=== PATIENT | male | born 1935 | race Caucasian/White ===

== ENCOUNTER → 2017-01-02 | Outpatient (CLI) | payer OTHER | LOC: FIMAGING 10:31 | PROVIDERS: ATTEND Internal Medicine Critical Care Medicine | DX: J44.9 Chronic obstructive pulmonary disease, unspecified (principal); J84.10 Pulmonary fibrosis, unspecified ==

== ENCOUNTER 2017-10-08 12:28 | Inpatient (IN) | payer OTHER, MEDICARE ==
[2017-10-08] MEDS ORDERED: IPRATROPIUM/ALBUTEROL 3 ML DEYVIAL ONE (12:33)
[2017-10-08 12:57] LABS: PLATELET COUNT 337 10^3/uL (150-400)
--- NOTE | 2017-10-08 13:33 | EDPHY ---
H & P Stated Complaint: abdominal pain, SOB Time Seen by Provider: 10/08/17 12:38 HPI/ROS: CHIEF COMPLAINT: Abdominal pain HISTORY OF PRESENT ILLNESS: Patient is an 81-year-old male with steroid and oxygen-dependent COPD who called EMS today because of abdominal pain. When the paramedics arrived they noted that his oxygen saturation was in the 70s with increased work of breathing. He was given a DuoNeb and nebulized albuterol and route to the hospital. He he was placed on CPAP with subsequent oxygen saturations in the low 90s. He continued to be tachypneic en route. He has not had recent fever or cough. He complains of abdominal pain which she states is generalized. It began earlier today. He has not had vomiting or diarrhea. His notes that he had a black loose stool earlier in the day. He received IV morphine en route. REVIEW OF SYSTEMS: A 10 point review of systems was performed and is negative with the exception of the elements mentioned in the history of present illness. Past medical history: 1. Prostate cancer 2. Hypertension 3. Dyslipidemia 4. CVA 5. COPD Past surgical history: Prostatectomy Social history: He lives with his . 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 He has a 50 pack-year history of smoking and stopped a few years back. His tells me that he drinks alcohol on occasion. General Appearance: Alert, moderate respiratory distress. Respiratory rate 22, blood pressure 134/93. oxygen saturation 90% on CPAP. Eyes: Matting and discharge from the right eye. FRANK. ENT, Mouth: Mucous membranes are dry. Neck: Trachea midline. Respiratory: Lungs with diffuse wheezing and poor air exchange. Cardiovascular: Slightly tachycardic. Gastrointestinal: Abdomen is diffusely tender without guarding. No masses appreciated. Rectal: No stool on the examining glove. Nontender. Skin: Warm and dry, no rashes, normal color. Back: Nontender to palpation over the thoracolumbar spine. Extremities: No lower extremity edema, no calf tenderness or swelling. Neurological: Alert and oriented. Moving all four extremities easily and equally. Psychiatric: Normal affect. No agitation. - Personal History Current Tetanus/Diphtheria Vaccine: No Current Tetanus Diphtheria and Acellular Pertussis (TDAP): No - Medical/Surgical History Hx Asthma: No Hx Chronic Respiratory Disease: Yes Hx Diabetes: No Hx Cardiac Disease: No Hx Renal Disease: No Hx Cirrhosis: No Hx Alcoholism: No Hx HIV/AIDS: No Hx Splenectomy or Spleen Trauma: No Other PMH: COPD - Social History Smoking Status: Former smoker Constitutional: Initial Vital Signs Temperature (C) 36.5 C 10/08/17 12:37 Heart Rate 91 10/08/17 12:37 Respiratory Rate 22 H 10/08/17 12:37 Blood Pressure 134/93 H 10/08/17 12:37 O2 Sat (%) 90 L 10/08/17 12:37 O2 Delivery Mode Bi-Pap O2 (L/minute) 15 Allergies/Adverse Reactions: No Known Allergies Allergy (Verified 10/08/17 12:37) Home Medications: Medication Instructions Recorded Fluticasone Nasal [Flonase Nasal 1 sprays NASAL HS 10/08/17 [place] (RX)] Fluticasone/Salmeter 250/50Mcg 1 puffs IH HS 10/08/17 [Advair 250/50 (*)] Lisinopril [Zestril 10 mg (*)] 10 mg PO DAILY 10/08/17 Simvastatin [Zocor] 40 mg PO HS 10/08/17 predniSONE 20 mg PO DAILY 10/08/17 Medical Decision Making - Diagnostics Imaging Results: Imaging Impressions Chest X-Ray 10/08/17 12:36 Impression: Poor inspiration. ED Course/Re-evaluation: Patient will not tolerate CT abdomen as he is unable to lie flat. 13:31 Reassessed patient. He continues to feel unwell, and complains of abdominal pain. On my reexamination, he continues to have abdominal tenderness. He denies vomiting but endorses black diarrhea earlier in the day. Occasional alcohol use. Plan for rectal exam. Plan for x-ray abdomen--given his respiratory distress he is not able to lie flat for CT scan the abdomen. at bedside states he has not been taking his Advair as prescribed. Hemoccult negative. Chest x-ray reveals poor inspiration. There is no free air noted. While in the emergency department he remained on BiPAP for most of his stay. He received 4 albuterol nebulizer treatments. He continued to be tachypneic with increased work of breathing. I think that some of this is due to his abdominal discomfort. He underwent serial examinations. His respiratory status improved and was ultimately able to be transitioned from BiPAP to face mask oxygen. I asked patient and his that discussed the treatments that he would like should he stop breathing, specifically whether he would want to be placed on a ventilator. Apparently they have not talked about this. He is a poor candidate for mechanical ventilation. He received IV Dilaudid for pain control with good results. However, he continued with abdominal pain. High blood cell count is 12.6. I consulted Dr. Reina Mao who examined him in the department. At the time of her examination she noted that he had peritoneal signs. At that time I re- examined him and found him to be markedly worse with significant abdominal tenderness and guarding. Dr. Mao and plans to take him to the operating room. He has been NPO. Differential Diagnosis: Shortness of breath including but not limited to pulmonary infectious process, COPD, asthma, pulmonary embolus and congestive heart failure. I considered a differential diagnosis of his abdominal pain that includes but is not limited to appendicitis, perforated viscus, cholecystitis, ascending cholangitis, bowel obstruction, urinary retention. Critical Care Time: I spent a total of [50] minutes of critical care time in obtaining history, performing a physical exam, bedside monitoring of interventions, collecting and interpreting tests and discussion with consultants but not including time spent performing procedures. Patient was a risk of both respiratory deterioration and deterioration secondary to an intra-abdominal infection/catastrophe. - Data Points Laboratory Results: Laboratory Results 10/08/17 12:38 10/08/17 12:38 10/08/17 10/08/17 10/08/17 14:20 13:30 12:38 WBC RBC Hgb Hct MCV MCH MCHC RDW Plt Count MPV Neut % (Auto) Lymph % (Auto) Mchenry % (Auto) Eos % (Auto) Baso % (Auto) Nucleat RBC Rel Count Absolute Neuts (auto) Absolute Lymphs (auto) Absolute Monos (auto) Absolute Eos (auto) Absolute Basos (auto) Absolute Nucleated RBC Immature Gran % Immature Gran # VBG Lactic Acid 2.7 mmol/L H mmol/L (0.7-2.1) Sodium 144 mEq/L mEq/L (135-145) Potassium 4.5 mEq/L mEq/L (3.5-5.2) Chloride 105 mEq/L mEq/L (97-110) Carbon Dioxide 25 mEq/l mEq/l (22-31) Anion Gap 14 mEq/L mEq/L (8-16) BUN 35 mg/dL H mg/dL (7-23) Creatinine 1.0 mg/dL mg/dL (0.7-1.3) Estimated GFR > 60 Glucose 147 mg/dL H mg/dL (70-100) Calcium 8.5 mg/dL mg/dL (8.5-10.4) Troponin I < 0.012 ng/mL ng/mL (0.000-0.034) Stool Occult Bld Scrn NEGATIVE (NEGATIVE) 10/08/17 12:38 WBC 12.65 10^3/uL H 10^3/uL (3.80-9.50) RBC 3.69 10^6/uL L 10^6/uL (4.40-6.38) Hgb 12.3 g/dL L g/dL (13.7-17.5) Hct 37.8 % L % (40.0-51.0) MCV 102.4 fL H fL (81.5-99.8) MCH 33.3 pg pg (27.9-34.1) MCHC 32.5 g/dL g/dL (32.4-36.7) RDW 13.6 % % (11.5-15.2) Plt Count 337 10^3/uL 10^3/uL (150-400) MPV 9.0 fL fL (8.7-11.7) Neut % (Auto) 76.4 % H % (39.3-74.2) Lymph % (Auto) 14.2 % L % (15.0-45.0) Mchenry % (Auto) 6.4 % % (4.5-13.0) Eos % (Auto) 0.2 % L % (0.6-7.6) Baso % (Auto) 0.4 % % (0.3-1.7) Nucleat RBC Rel Count 0.2 % % (0.0-0.2) Absolute Neuts (auto) 9.67 10^3/uL H 10^3/uL (1.70-6.50) Absolute Lymphs (auto) 1.79 10^3/uL 10^3/uL (1.00-3.00) Absolute Monos (auto) 0.81 10^3/uL H 10^3/uL (0.30-0.80) Absolute Eos (auto) 0.03 10^3/uL 10^3/uL (0.03-0.40) Absolute Basos (auto) 0.05 10^3/uL 10^3/uL (0.02-0.10) Absolute Nucleated RBC 0.02 10^3/uL H 10^3/uL (0-0.01) Immature Gran % 2.4 % H % (0.0-1.1) Immature Gran # 0.30 10^3/uL H 10^3/uL (0.00-0.10) VBG Lactic Acid Sodium Potassium Chloride Carbon Dioxide Anion Gap BUN Creatinine Estimated GFR Glucose Calcium Troponin I Stool Occult Bld Scrn Microbiology Results: MICROBIOLOGY 10/08/17 12:50 Nasal, Sinus - [facility] Viral Transport Respiratory Panel ( PCR) - Final No Organism Detected Medications Given: Hydromorphone HCl (Dilaudid) 0.2 - 0.4 mg IVP Q4HRS PRN PRN Reason: Pain, Severe Unable to Take PO Stop: 10/18/17 14:33 Last Admin: 10/08/17 15:23 Dose: 0.4 mg Sodium Chloride (Ns) 1,000 mls @ 150 mls/hr IV CONT CRISTIANA Stop: 04/06/18 14:29 Last Admin: 10/08/17 15:14 Dose: 1,000 mls Methylprednisolone Sodium Succinate (Solu-Medrol) 60 mg IVP Q6HRS CRISTIANA Stop: 04/06/18 14:36 Last Admin: 10/08/17 16:34 Dose: 60 mg Discontinued Medications Ampicillin Sodium/Sulbactam (Sodium 3 gm/ Sodium Chloride) 100 mls @ 200 mls/ hr IV ONCE ONE Stop: 10/08/17 15:29 Last Admin: 10/08/17 15:30 Dose: 100 mls Departure - Departure Disposition: [facility] Acute Clinical Impression: Chronic obstructive pulmonary disease with acute exacerbation, Abdominal pain in male Condition: Critical
[2017-10-08] MEDS ORDERED: ALBUTEROL 3 ML DEYVIAL ONE (13:46)
[2017-10-08] MEDS ORDERED: ONDANSETRON DISINTEGRATING 4 MG TAB PO PRN (14:34)
[2017-10-08] MEDS ORDERED: ONDANSETRON 4 MG/2 ML VIAL IVP PRN (14:34)
[2017-10-08] MEDS ORDERED: IOPAMIDOL (ISOVUE-300) 100 ML BTL ONE (14:58)
[2017-10-08] MEDS ORDERED: AMPICILLIN/SULBACTAM 3 GM in NS 100 ML IV ONE (15:00)
[2017-10-08] MEDS: NS 1,000 ML IV SCH (15:14)
--- NOTE | 2017-10-08 15:16 | GHP ---
[f rep st] HISTORY AND PHYSICAL DATE OF ADMISSION: 10/08/2017 HISTORY OF PRESENT ILLNESS: The patient is a pleasant 81-year-old gentleman with a history of steroid and oxygen-dependent COPD, who presents to the ER with abdominal pain and increased work of breathing. He felt well last night. He woke up this morning, he had right lower quadrant tenderness. He still has his appendix and gallbladder. He did not have a bowel movement. He did not eat. He has not had fever. He has had subjective chills. Upon arrival in the emergency department he was in obvious respiratory distress and continued to worsen. He was placed on CPAP while here. He has not had sputum. It sounds like he and his have not had discussions regarding code status. There is report of a black stool recently. REVIEW OF SYSTEMS: Complete 10-point review of systems conducted and negative, except that as noted in the HPI. PAST MEDICAL HISTORY: 1. Oxygen-dependent COPD. 2. Partially paralyzed left hemidiaphragm. 3. Hyperlipidemia. 4. Possible transient ischemic attack. 5. Hypertension. ALLERGIES: No known drug allergies. HOME MEDICATIONS: Advair, albuterol, aspirin, fluticasone, lisinopril, Plavix, simvastatin, tiotropium. SOCIAL HISTORY: Lives with his . No longer smokes cigarettes. FAMILY HISTORY: His parents . PHYSICAL EXAMINATION: PRESENTING VITALS: Temp 36.5, blood pressure 134/93, pulse 91, breathing 22 times a minute, 98% on CPAP. GENERAL: Thin, chronically ill-appearing, on CPAP. HEENT: Sclerae anicteric. Oropharynx clear. Mucous membranes dry. NECK: Supple, without lymphadenopathy or JVD. LUNGS: Distant air breath sounds bilaterally, without wheeze and decreased air movement. HEART: S1, S2. Tachycardic. ABDOMEN: Soft. It is firm. There is right lower quadrant tenderness with some rebound. LOWER EXTREMITIES: Showed 2+ edema bilaterally. Calves are nontender. SKIN: Without rash, but does have some retention hyperkeratosis on his feet. NEUROLOGIC: Nonfocal. LABS: White count of 12.6 with a left shift, hematocrit is 37.8, platelets are 337,000. Venous lactate pending. Sodium 144, potassium 4.5, chloride 105, bicarb 25, BUN 35, creatinine 1.0. Troponin less than 0.012. Glucose 147. Stool occult blood is negative. IMAGING: His chest x-ray shows no air under the hemidiaphragm with dilated left hemicolon, with a high left hemidiaphragm without infiltrate. I discussed the case with Dr. Graciela Garg. ASSESSMENT AND PLAN: 81-year-old gentleman who presents with right lower quadrant abdominal pain concerning for appendicitis, as well as chronic obstructive pulmonary disease flare with acute hypoxemic respiratory failure. 1. Query appendicitis. Surgery will see him. He does not have free air in his diaphragm. He has a concerning abdominal exam, but his increased work of breathing does confound the exam. I have ordered a CAT scan. 2. Question sepsis. The patient has tachycardia and leukocytosis with apparent source of fever. I have started him on Unasyn. Will obtain venous lactate. 3. Acute hypoxemic respiratory failure. Worry about hypercarbia as well. I have ordered an ABG. He does not particularly have an elevated serum lactate at 25 now. He has always had high normal lactates in the past, the most recent of which was December 2016. I have started him on Solu-Medrol, scheduled DuoNeb. He will be on antibiotics and will follow. 4. Tachycardia. I think this is secondary to increased work of breathing. Will give him some IV fluids. He has a reasonable blood pressure. 5. Code status. The patient is currently full code. It does not look like he and his have talked about it. He would do poorly with elective intubation. DISPOSITION: Inpatient status, critically ill, ICU. 45 minutes crit care time /[id number]/MODL MTDD
[2017-10-08] MEDS: HYDROmorphONE/DILAUDID 1 MG/ML INJ IVP PRN (15:23)
[2017-10-08] MEDS: methylPREDNISolone SOD SUCC 125 MG/2 ML VIAL IVP SCH (16:34)
--- NOTE | 2017-10-08 17:27 | PDANEPAE ---
ANE History of Present Illness 81 year old with history of O2 dependant COPD. In resp distress. Scheduled for exploratory laporoscopy, possible bowel resection. ANE Past Medical History - Cardiovascular History Hx Hypertension: Yes - Pulmonary History Hx COPD: Yes Hx Oxygen in Use at Home: Yes O2 in Use at Home (L/minute): 3 - Endocrine History Hx Diabetes: No ANE Review of Systems Review of Systems: - Systems Respiratory: Reports: shortness of breath ANE Patient History - Allergies Allergies/Adverse Reactions: No Known Allergies Allergy (Verified 10/08/17 12:37) - Home Medications Home medications: home medication list seen and reviewed Home Medications: Fluticasone Nasal [Flonase Nasal [place] (RX)] 1 sprays NASAL 10/08/17 [Last Taken 10/07/17] Fluticasone/Salmeter 250/50Mcg [Advair 250/50 (*)] 1 puffs IH 10/08/17 [Last Taken 10/07/17] Lisinopril [Zestril 10 mg (*)] 10 mg PO DAILY 10/08/17 [Last Taken 10/07/17] Simvastatin [Zocor] 40 mg PO HS 10/08/17 [Last Taken 10/07/17] predniSONE 20 mg PO DAILY 10/08/17 [Last Taken 10/07/17] - NPO status NPO Since - Liquids (Date): 10/08/17 NPO Since - Liquids (Time): 10:00 NPO Since - Solids (Date): 10/08/17 NPO Since - Solids (Time): 10:00 - Anes Hx Anes Hx: no prior problems - Smoking Hx Smoking Status: Former smoker ANE Labs/Vital Signs - Labs Result Diagrams: 10/08/17 12:38 10/08/17 12:38 - Vital Signs Blood Pressure: 109/80 Heart Rate: 123 Respiratory Rate: 26 O2 Sat (%): 91 Height: 177.8 cm Weight: 68.039 kg ANE Physical Exam - Airway Neck exam: FROM Mallampati Score: Class 2 - Pulmonary Pulmonary: reduced air movement, respiratory distress - Cardiovascular Cardiovascular: tachycardia - ASA Status ASA Status: IV, E ANE Anesthesia Plan Anesthesia Plan: general endotracheal anesthesia (Pt may need to remain intubated post-op)
[2017-10-08] MEDS ORDERED: IPRATROPIUM/ALBUTEROL 3 ML DEYVIAL IH SCH (18:00)
[2017-10-08] MEDS ORDERED: BUPIVACAINE 0.5% 30 ML SDV ONE (18:25)
[2017-10-08] MEDS ORDERED: fentaNYL 100 MCG/2 ML INJ ONE ×2 (18:38→20:56)
[2017-10-08] MEDS ORDERED: ETOMIDATE 20 MG/10 ML VIAL ONE (18:38)
[2017-10-08] MEDS ORDERED: PROPOFOL 200 MG/20 ML VIAL ONE (18:38)
[2017-10-08] MEDS ORDERED: DEXAMETHASONE 4 MG/ML VIAL ONE (18:38)
[2017-10-08] MEDS ORDERED: LIDOCAINE 2% 5 ML SDV ONE (18:39)
[2017-10-08] MEDS ORDERED: ONDANSETRON 4 MG/2 ML VIAL ONE (18:39)
[2017-10-08] MEDS ORDERED: PHENYLEPHRINE HCL 100 MCG/ML SYR ONE ×2 (18:53→22:08)
[2017-10-08] MEDS ORDERED: ALBUMIN 5% 250 ML BOTTLE IV ONE (19:23)
[2017-10-08 21:00] LABS: INR 1.44 (0.83-1.16); PLATELET COUNT 197 10^3/uL (150-400); PROTIME(PATIENT) 17.7 SEC (12.0-15.0)
[2017-10-08] MEDS ORDERED: PROPOFOL/EMULSION 500 MG/50 ML BOTTLE IV ONE (21:28)
[2017-10-08] MEDS ORDERED: ROCURONIUM 50 MG/5 ML VIAL ONE (21:52)
[2017-10-08] MEDS ORDERED: SUGAMMADEX SODIUM 200 MG/2 ML VIAL IVP ONE (22:04)
[2017-10-08] MEDS ORDERED: PHENYLEPHRINE 10 MG/ML SDV ONE (22:08)
--- NOTE | 2017-10-08 22:15 | POSTOPPROG ---
Post Op Note Date of Operation: 10/08/17 Surgeon: Reina Mao Anesthesiologist: jose g Anesthesia: GET(General Endotracheal) Pre-op Diagnosis: abdominal pain Post-op Diagnosis: perforated gastric ulcer Indication: 81 yo with increasing respiratory difficulty and abdominal pain Procedure: laparoscopy with repair of gastric ulcer Findings: Purulent fluid by cecum, omentum to abdominal wall Perforated gastric ulce Inf/Abcess present in the surg proc area at time of surgery?: Yes Depth: Organ Space EBL: Minimal Specimen(s): fluid for micro
[2017-10-08] MEDS ORDERED: fentaNYL/NACL 100 ML IV SCH (22:30)
[2017-10-08] MEDS ORDERED: PROPOFOL/EMULSION 100 ML IV SCH (22:30)
[2017-10-08] MEDS ORDERED: PROPOFOL/EMULSION 1,000 MG/100 ML BOTTLE IV ONE (22:39)
--- NOTE | 2017-10-08 22:48 | POSTANESTH ---
Post Anesthetic Evaluation Cardiovascular Status: Similar to Pre-Op Cond Respiratory Status: Requires Airway Assist Level of Consciousness/Mental Status: Unconscious Pain Control: Adequate, Prn Tx Ordered Nausea/Vomiting Control: Adequate, Prn Tx Ordered Complications Possibly Related to Anesthesia: None Noted (Intubated and sedated. Stable in ICU.)
[2017-10-08] MEDS: AMPICILLIN/SULBACTAM 3 GM in NS 100 ML IV SCH (22:59)
[2017-10-08] MEDS: FLUTICASONE/SALMETER 250/50MCG DISKUS IH SCH (23:16)
[2017-10-09] MEDS: methylPREDNISolone SOD SUCC 125 MG/2 ML VIAL IVP SCH ×6 (00:45→23:32)
[2017-10-09] MEDS: FLUTICASONE NASAL 120 SPRAYS/16 GM MDI NS SCH ×2 (00:45→22:05)
[2017-10-09] MEDS: NS 1,000 ML IV SCH ×2 (00:47→22:06)
[2017-10-09] MEDS ORDERED: ALBUTEROL 60 PUFFS/8 GM MDI IH SCH (02:00)
[2017-10-09 04:44] LABS: PLATELET COUNT 159 10^3/uL (150-400)
[2017-10-09] MEDS: AMPICILLIN/SULBACTAM 3 GM in NS 100 ML IV SCH ×4 (05:36→23:32)
--- NOTE | 2017-10-09 08:25 | GCON ---
[f rep st] CONSULTATION NAME OF REQUESTING PHYSICIAN: Dr. Dev hSields. REASON FOR CONSULTATION: Abdominal pain. HISTORY OF PRESENT ILLNESS: The patient is an 81-year-old man, with history of steroid- and oxygen-d ependent COPD, who presented to the ER with abdominal pain. When I met him, he was on BiPAP and was unable to lie flat for a CT scan. As I examined him, he was extremely tender to palpation and percus orquidea. I felt that the CT scan was not needed, and that we needed to go to the operating room. Past medical history is obtained through [employer] as when I was interviewing him, he was too breathless to communicate. PAST MEDICAL HISTORY: COPD, partially paralyzed left hemidiaphragm, hyperlipidemia, possible TIA, hy pertension. ALLERGIES: No known drug allergies. HOME MEDICATIONS: Advair, albuterol, aspirin, fluticasone, lisinopril, Plavix, simvastatin, __. SOCIAL HISTORY: Lives with his . He does not use tobacco products. FAMILY HISTORY: Parents are . REVIEW OF SYSTEMS: Unable to be obtained because he is so breathless. PHYSICAL EXAMINATION: VITAL SIGNS: 36.5, 91, 134/93, 22, 90% on BiPAP. GENERAL: Pleasant elderly man, sitting on gurney. HEENT: Normocephalic. No gross hearing deficits. Unable to assess mucous membranes due to BiPAP being in place. Pupils equal and round. No scleral icterus. LUNGS: Obvious increased work of breathing. Decreased at bases. CARDIAC: Regular rate. ABDOMEN: His bowel soun ds are hypoactive. He is extremely tender to palpation. He is slightly distended. MUSCULOSKELETAL: Normal nails. PSYCH: Appropriate. NEURO: Grossly intact. RESULTS REVIEWED: I reviewed the results of his blood work, with his elevated white blood cell count . His chest x-ray did not show free air. IMPRESSION AND PLAN: The patient is an 81-year-old man with peritoneal signs. We discussed that he could likely going to the operating room, as he is not a great operative candidate at this point, and that he would likely stay intubated. He is also on Plavix. We also discussed, should he not go to the operating room, he would also likely become septic. I am unsure of what the origin of his ab dominal pain is, but I am sure that there is some type of perforated viscus. We will try this laparo scopically, if not open, and there is a possible bowel resection. He had his questions answered to h is satisfaction and signed the informed consent. I also discussed the case with his by phone. /[id number]/MODL
[2017-10-09] MEDS: PANTOPRAZOLE SODIUM 40 MG VIAL IVP SCH ×2 (08:55→22:05)
[2017-10-09] MEDS: CHLORHEXIDINE GLUCONATE 15 ML UDL PO SCH ×2 (08:55→22:05)
[2017-10-09] MEDS: ENOXAPARIN 40 MG/0.4 ML SYR SC SCH (08:55)
[2017-10-09] MEDS ORDERED: FAMOTIDINE 20 MG/NACL 50 ML IV SCH (09:00)
--- NOTE | 2017-10-09 09:20 | GCON ---
[f rep st] CONSULTATION [facility] MACHINE INSPECTOR CONSULTATION REASON FOR ADMISSION: Laparoscopic repair of gastric ulcer, chronic obstructive pulmonary disease, a cute respiratory failure. HISTORY OF PRESENT ILLNESS: The patient is an 81-year-old, white male with a past medical history of severe chronic obstructive pulmonary disease which is oxygen dependent, paralyzed left hemidiaphragm , TIAs, hypertension, hyperlipidemia. He was in the emergency room with increasing abdominal pain. He was subsequently intubated, taken to the operating room where he underwent a laparoscopic repair o f a gastric ulcer. He was transferred to the intensive care unit. Currently, patient is sedated and on mechanical ventilation. All history is gleaned from the medical record. He apparently was stabl e overnight and remains on mechanical ventilation. REVIEW OF SYSTEMS: A 10-point review of system was attempted but the patient is sedated and this is unable to be obtained. PAST MEDICAL HISTORY: Again, significant for severe chronic obstructive lung disease which is oxygen dependent. Paralyzed left hemidiaphragm, hyperlipidemia, transient ischemic attacks and hypertensio n. ALLERGIES: No known allergies to medications. SOCIAL HISTORY: Previous heavy smoking, none for many years. No significant alcohol use. He reside s with his . Has excellent family support. MEDICATIONS: At home include Spiriva, simvastatin, Plavix, lisinopril, fluticasone, aspirin, albuter ol and Advair. FAMILY HISTORY: Noncontributory. PHYSICAL EXAM: VITAL SIGNS: Blood pressure is 102/46, pulse is 82, respirations 12, temperature is 35.7, oxygen saturation is 94% on mechanical ventilation. GENERAL: He is a well-developed, elderly, white male who is sedated and on mechanical ventilation. HEENT: Eyes FRANK, EOMI. He has bilateral arcus senilis present. Throat: Endotracheal tube is in good position. NECK: Supple. There is no cervical adenopathy. HEART: Regular rate and rhythm with a 2/6 systolic murmur at the left sternal border without radiation. LUNGS: Diminished breath sounds, but no wheeze. There is a prolongation expiratory phase. ABDOMEN: Soft, appropriately tender. Bowel sounds are present. EXTREMITIES: N o clubbing, cyanosis, or edema. LABORATORIES: White count 10.6, hemoglobin 9.2, hematocrit 28, platelet count is 159. MCV is elevat ed at 103.7. Arterial blood gas, pH 7.32, pCO2 of 40, PO2 of 83, bicarb 21, oxygen saturation 94%. This is on mechanical ventilation. Sodium 144, potassium 4.8, chloride 116, CO2 21, BUN is 32, creat inine 1.0, glucose is 177. Chest x-ray, interpreted by myself, reveals elevated left hemidiaphragm. Endotracheal tube is in goo d position. There is cervical spine hardware present. Central line is present and in good position. There is a possible infiltrate in the right lower lobe. IMPRESSION: 1. Gastric ulcer. 2. Status post laparoscopic repair of gastric ulcer. 3. Chronic obstructive pulmonary disease, this is severe. 4. Acute respiratory failure secondary to surgery as well as his chronic obstructive pulmonary disea se. 5. Hypertension. 6. Hyperlipidemia. 7. Paralyzed left hemidiaphragm. 8. History of transient ischemic attacks. RECOMMENDATIONS: 1. Will place patient on CPAP trial. 2. Will obtain weaning parameters in an attempt to extubate patient from mechanical ventilation. 3. Frequent nebulization with both albuterol and Atrovent. 4. DVT and PE prophylaxis. 5. Stress ulcer prophylaxis. 6. Close cardiovascular monitoring. 7. Agree with supplemental steroids. Thank you very much for allowing me to participate in the care of this patient. Will follow along wi th you. Forty-five minutes of critical care time spent with the patient. Case discussed with Respiratory the rapy and Nursing. /[id number]/CECILIOL
--- NOTE | 2017-10-09 10:39 | ASMTCMCOM ---
CM Note CM Note Notes: Patient admitted with abdominal pain and found to have a perfortated gastric ulcer + abscess. He went to the OR yesterday for a repair. He is recovering well in the ICU and was extubated today. A GI consult has been ordered, as well as PT/OT/CORONER TRANSPORT TECHNICIAN evals. Patient lives with ; discharge needs are TBD. Date Signed: 10/09/2017 10:38 AM Electronically Signed By:Tete Alejandro RN
[2017-10-09] MEDS: ALBUTEROL 60 PUFFS/8 GM MDI IH SCH ×4 (12:06→23:17)
--- NOTE | 2017-10-09 13:15 | PDMN ---
Medical Necessity Medical necessity: Pt meets IP criteria per MD; est los >2 mn for eval/tx of RLQ abdominal pain concerning for appendicitis, possible sepsis, COPD flare w/ acute hypoxemic respiratory failure & tachycardia; pt critically ill admit to ICU for further workup/close monitoring, supportive care, IVFs, IV abx, IV pain meds/steroids & Surgery consult; hx O2-dependent COPD, partially paralyzed L hemidiaphragm, HTN & possible TIA; per H&P & order 10/08/17
[2017-10-09] MEDS: HYDROmorphONE/DILAUDID 1 MG/ML INJ IVP PRN (14:26)
--- NOTE | 2017-10-09 16:41 | HOSPPROG ---
Hospitalist Progress Note Assessment/Plan: Assessment: 81-year-old male presenting with acute perforated gastric ulcer and acute hypoxic respiratory failure Plan: 1. Perforated gastric ulcer. Acute, unclear precipitant, postop day [address] Vidales for laparoscopic repair comma in the setting of Plavix therapy -per Dr. Mao, the patient had purulent material around the cecum, continue IV Unasyn day 2 -placed on IV PPI twice daily given unclear cause -once patient has medically stabilized, would recommend GI consultation for upper endoscopy to evaluate -continue NG tube suction, NPO, pain control as needed 2. Acute on chronic hypoxic respiratory failure. Present on admission and not related to his surgery, evidenced by SpO2 83% on presentation, objective tachypnea with respiratory rate of greater than 30, symptomatic shortness of breath, most likely secondary to diaphragmatic impairment in the setting of intra-abdominal perforation, required intubation -continue on supplemental oxygen status post extubation 3. Acute atelectasis. Right lower lobe on chest x-ray, personally interpreted , give incentive spirometer once able 4. Chronic steroid dependency and chronic immunosuppression. Underlying COPD, unclear why he is on prednisone 20 mg, does not appear to have an acute exacerbation -continue on stress dose steroids while he is NPO 5. COPD. Chronic, continue on bronchodilator therapy, Atrovent, steroids no evidence of acute exacerbation -reviewed outside records including 08/28/[address] King Dunbar, consultation note reporting patient has a paralyzed left diaphragm as well as underlying COPD 6. Previous TIA. Currently holding Plavix given above perforation 7. Suspected postoperative ileus. Hypoactive bowel sounds, continue NG tube suction, under the management of Dr. Mao 8. Bilateral lower extremity edema. Chronic per patient, continue to monitor Diet NPO Prophylaxis. High risk patient, Lovenox 40 Code. Full Disposition. Anticipated discharge uncertain this time, remains critically ill. High-level medical complexity, high risk of worsening morbidity and/or mortality , secondary to the issues as outlined above. Subjective: Patient reports that his abdominal discomfort has improved Objective: Vital Signs Temp Pulse Resp BP Pulse Ox 36.4 C 100 18 142/58 H 95 10/09/17 16:00 10/09/17 16:00 10/09/17 16:00 10/09/17 16:00 10/09/17 16:00 Microbiology 10/08/17 20:15 Gram Stain - Final Peritoneal Fluid - Aspirate Laboratory Results 10/09/17 04:05 10/09/17 04:05 10/08/17 10/09/17 10/10/17 05:59 05:59 05:59 Intake Total 679.6 25 Output Total 450 190 Balance 229.6 -165 PT 17.7 SEC (12.0-15.0) H 10/08/17 20:28 INR 1.44 (0.83-1.16) H 10/08/17 20:28 - Physical Exam Constitutional: no apparent distress, not in pain, chronically ill appearing, uncomfortable Ears, Nose, Mouth, Throat: other (Nasogastric tube in place, set to suction) Cardiovascular: edema (1+ bilateral lower extremities), No systolic murmur, No irregularly irregular, No tachycardia Respiratory: no respiratory distress, no rales or rhonchi, clear to auscultation Gastrointestinal: tenderness (The bilateral lower quadrant), distension (Mild), No guarding, No other (Hypoactive bowel sounds) Skin: other (Very minimal erythema around the surgical sites, no ecchymoses, no induration, no fluctuance, minimal tenderness) Neurologic: AAOx3, sensation intact bilaterally, No weakness (Motor 5/5 bilateral lower extremity) Psychiatric: not anxious, flat affect, other (Lethargic but arousable), No agitated ICD10 Worksheet Patient Problems: Problems Problem Status Onset Abdominal pain in male Acute Chronic obstructive pulmonary disease with acute exacerbation Acute
[2017-10-09] MEDS: FLUTICASONE/SALMETER 250/50MCG DISKUS IH SCH (23:32)
[2017-10-10 04:16] LABS: PLATELET COUNT 203 10^3/uL (150-400)
[2017-10-10] MEDS: AMPICILLIN/SULBACTAM 3 GM in NS 100 ML IV SCH ×4 (05:39→22:52)
[2017-10-10] MEDS: methylPREDNISolone SOD SUCC 125 MG/2 ML VIAL IVP SCH ×3 (05:39→17:34)
[2017-10-10] MEDS: ALBUTEROL 60 PUFFS/8 GM MDI IH SCH ×6 (06:07→23:58)
[2017-10-10] MEDS: CHLORHEXIDINE GLUCONATE 15 ML UDL PO SCH ×2 (08:46→21:18)
[2017-10-10] MEDS: PANTOPRAZOLE SODIUM 40 MG VIAL IVP SCH ×2 (08:47→21:18)
[2017-10-10] MEDS: HYDROmorphONE/DILAUDID 1 MG/ML INJ IVP PRN (08:47)
[2017-10-10] MEDS: ENOXAPARIN 40 MG/0.4 ML SYR SC SCH (08:48)
--- NOTE | 2017-10-10 09:14 | PDINTPN ---
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 Stable -continue frequent nebs * Acute respiratory failure secondary to COPD and surgery-off mechanical ventilation -will wean oxygen as tolerated * Status post laparoscopic repair of gastric ulcer-stable * Paralyzed left hemidiaphragm * Hypertension-blood pressure stable * Pain-well controlled * PT/OT-will start today Subjective: Resting comfortably. Pain is tolerated well. Breathing easily off mechanical ventilation. Objective: Vital Signs Temp Pulse Resp BP Pulse Ox 37.7 C 102 H 18 131/78 H 96 10/10/17 08:00 10/10/17 08:00 10/10/17 08:00 10/10/17 08:00 10/10/17 08:00 Microbiology 10/08/17 20:15 Gram Stain - Final Peritoneal Fluid - Aspirate Laboratory Results 10/10/17 04:05 10/10/17 04:05 10/09/17 10/10/17 10/11/17 05:59 05:59 05:59 Intake Total 679.6 1805 Output Total 450 1740 Balance 229.6 65 PT 17.7 SEC (12.0-15.0) H 10/08/17 20:28 INR 1.44 (0.83-1.16) H 10/08/17 20:28 - Time Spent With Patient Time Spent With Patient: 35 min of time spent with patient, over 1/2 involved with coordination of care or counseling Physical Exam - Physical Exam General Appearance: alert, no apparent distress EENT: PERRL/EOMI, normal ENT inspection Neck: non-tender, full range of motion, supple, normal inspection Respiratory: decreased breath sounds, prolonged expiration, No respiratory distress, No stridor, No wheezing Cardiac/Chest: normal peripheral pulses, regular rate, rhythm, systolic murmur Peripheral Pulses: 2+: carotid (R), carotid (L), femoral (R), femoral (L), dorsalis-pedis (R), dorsalis-pedis (L) Abdomen: soft, No non-tender (Appropriate) Male Genitalia: deferred Rectal: deferred Skin: normal color, warm/dry Extremities: normal range of motion, non-tender, normal inspection, normal capillary refill Neuro/Psych: alert ICD10 Worksheet Patient Problems: Problems Problem Status Onset Abdominal pain in male Acute Chronic obstructive pulmonary disease with acute exacerbation Acute
[2017-10-10] MEDS: D5W 1/2 NS 1,000 ML IV SCH ×2 (10:20→21:18)
[2017-10-10] MEDS ORDERED: IPRATROPIUM/ALBUTEROL 3 ML DEYVIAL IH PRN (10:46)
[2017-10-10] MEDS: ACETYLCYSTEINE 10% IH/PO 4 ML VIAL IH SCH ×4 (11:05→23:58)
--- NOTE | 2017-10-10 16:26 | HOSPPROG ---
Hospitalist Progress Note Assessment/Plan: Assessment: 81-year-old male presenting with acute perforated gastric ulcer and acute hypoxic respiratory failure Plan: 1. Perforated gastric ulcer. Acute, unclear precipitant, postop day [address] Vidales for laparoscopic repair, in the setting of Plavix therapy -purulent material around the cecum and ongoing abd tenderness, continue IV Unasyn day 3 -consider repeat abd CT if tenderness persists -continue NG tube suction, NPO, pain control as needed -d/w Dr. Carbone, she recommends testing for H. pylori and tx if positive, cont bid PPI IV (cont PO as outpt), and f/u w/ GI to plan EGD (risk of perf/ complication high immediately following ulcer repair) 2. Acute on chronic hypoxic respiratory failure. Present on admission and not related to his surgery, evidenced by SpO2 83% on presentation, objective tachypnea with respiratory rate of greater than 30, symptomatic shortness of breath, most likely secondary to diaphragmatic impairment in the setting of intra-abdominal perforation, required intubation -continue on supplemental oxygen status post extubation, currently 9LPM which is substantially higher than baseline 3. Acute atelectasis. Right lower lobe on chest x-ray, personally interpreted , give incentive spirometer once able 4. Chronic steroid dependency and chronic immunosuppression. Underlying COPD, unclear why he is on prednisone 20 mg, does not appear to have an acute exacerbation -continue on stress dose steroids while he is NPO 5. COPD. Chronic, continue on bronchodilator therapy, Atrovent, steroids no evidence of acute exacerbation -confirmed w/ Dr. Pearson on rounds, cont home Rx 6. Previous TIA. Currently holding Plavix given above perforation 7. Suspected postoperative ileus. Hypoactive bowel sounds, continue NG tube suction, under the management of Dr. Mao 8. Bilateral lower extremity edema. Chronic per patient, continue to monitor 9. Acute blood loss anemia. Hgb 12->8.6, no e/o ongoing blood loss, cont to monitor, hemodynamically stable Diet NPO Prophylaxis. High risk patient, Lovenox 40 Code. Full Disposition. Anticipated discharge uncertain this time, remains critically ill. High-level medical complexity, high risk of worsening morbidity and/or mortality , secondary to the issues as outlined above. Subjective: patient wants to eat ice chips, no Bms Objective: Vital Signs Temp Pulse Resp BP Pulse Ox 36.5 C 96 20 128/70 H 92 10/10/17 12:00 10/10/17 14:00 10/10/17 14:00 10/10/17 14:00 10/10/17 14:00 Microbiology 10/08/17 20:15 Gram Stain - Final Peritoneal Fluid - Aspirate Laboratory Results 10/10/17 04:05 10/10/17 04:05 10/09/17 10/10/17 10/11/17 05:59 05:59 05:59 Intake Total 679.6 1805 Output Total 450 1740 Balance 229.6 65 PT 17.7 SEC (12.0-15.0) H 10/08/17 20:28 INR 1.44 (0.83-1.16) H 10/08/17 20:28 - Physical Exam Constitutional: no apparent distress, not in pain, chronically ill appearing, uncomfortable Ears, Nose, Mouth, Throat: other (NGT in place) Cardiovascular: tachycardia, edema (trace bilat LE), No systolic murmur, No irregularly irregular Respiratory: reduced air movement (shortened exp phase), expiratory wheeze ( faint bilat), bronchial breath sounds, No respiratory distress Gastrointestinal: tenderness (RLQ), guarding (voluntary, fluctuates on exam), distension (mild), No normoactive bowel sounds (hypoactive bowel sounds) Skin: other (minimal erythema around surg sites) Neurologic: sensation intact bilaterally, other (AAOx2 (person and place, not time)), No weakness (motor 5/5 all ext) Psychiatric: not encephalopathic, anxious, other (concentration 7/7), No agitated ICD10 Worksheet Patient Problems: Problems Problem Status Onset Abdominal pain in male Acute Chronic obstructive pulmonary disease with acute exacerbation Acute
[2017-10-10] MEDS ORDERED: VANCOMYCIN HCL/NORMAL SALINE 250 ML IV SCH (19:00)
[2017-10-10] MEDS: FLUTICASONE/SALMETER 250/50MCG DISKUS IH SCH (20:58)
[2017-10-10] MEDS: FLUTICASONE NASAL 120 SPRAYS/16 GM MDI NS SCH (21:00)
--- NOTE | 2017-10-10 21:44 | SOAPPROG ---
SOAP Progress Note Assessment/Plan: Assessment: POD # 2 s/p repair of gastric perf Grossly contaminated abdomen - continue ABX Cultures pending Might remove NG in am Will be very cautious with clears S: Feeling about the same. No flatus O: INcisions cdi - some mild ecchymosis. BS present Plan: 10/10/17 21:43 Objective: Vital Signs Temp Pulse Resp BP Pulse Ox 36.7 C 98 18 139/75 H 91 L 10/10/17 20:00 10/10/17 20:20 10/10/17 20:20 10/10/17 20:00 10/10/17 20:20 Microbiology 10/08/17 20:15 Gram Stain - Final Peritoneal Fluid - Aspirate Laboratory Results 10/10/17 04:05 10/10/17 04:05 10/09/17 10/10/17 10/11/17 05:59 05:59 05:59 Intake Total 679.6 1805 1634 Output Total 450 1740 700 Balance 229.6 65 934 PT 17.7 SEC (12.0-15.0) H 10/08/17 20:28 INR 1.44 (0.83-1.16) H 10/08/17 20:28 ICD10 Worksheet Patient Problems: Problems Problem Status Onset Abdominal pain in male Acute Chronic obstructive pulmonary disease with acute exacerbation Acute
[2017-10-11] MEDS: methylPREDNISolone SOD SUCC 125 MG/2 ML VIAL IVP SCH ×3 (00:21→11:47)
[2017-10-11 04:37] LABS: PLATELET COUNT 167 10^3/uL (150-400)
[2017-10-11] MEDS: AMPICILLIN/SULBACTAM 3 GM in NS 100 ML IV SCH ×4 (05:09→22:53)
[2017-10-11] MEDS: ALBUTEROL 60 PUFFS/8 GM MDI IH SCH ×2 (05:44→08:38)
[2017-10-11] MEDS: ACETYLCYSTEINE 10% IH/PO 4 ML VIAL IH SCH ×5 (05:50→23:49)
[2017-10-11] MEDS: CHLORHEXIDINE GLUCONATE 15 ML UDL PO SCH (08:28)
[2017-10-11] MEDS: IPRATROPIUM/ALBUTEROL 3 ML DEYVIAL IH SCH ×4 (08:38→23:49)
--- NOTE | 2017-10-11 08:53 | SOAPPROG ---
SOAP Progress Note Assessment/Plan: Assessment/plan: 81yo M POD # 3 s/p repair of gastric perf Grossly contaminated abdomen - continue ABX Cultures pending Remove NG tube - sips and chips. May advance to clears tomorrow Appreciate hospitalist management of comorbidities S: No flatus. Pain controlled O: Sittinf upright in chair, comfortable, NAD Coarse breath sounds. Facemask RRR Hypoactive BS, soft min tenderness to palpation, incisions CDI Objective: Vital Signs Temp Pulse Resp BP Pulse Ox 36.9 C 94 22 H 146/91 H 89 L 10/11/17 08:00 10/11/17 08:00 10/11/17 08:00 10/11/17 08:00 10/11/17 08:00 Microbiology 10/08/17 20:15 Gram Stain - Final Peritoneal Fluid - Aspirate Laboratory Results 10/11/17 04:25 10/11/17 04:25 10/10/17 10/11/17 10/12/17 05:59 05:59 05:59 Intake Total 1805 3030 Output Total 1740 1050 300 Balance 65 1980 -300 PT 17.7 SEC (12.0-15.0) H 10/08/17 20:28 INR 1.44 (0.83-1.16) H 10/08/17 20:28 ICD10 Worksheet Patient Problems: Problems Problem Status Onset Abdominal pain in male Acute Chronic obstructive pulmonary disease with acute exacerbation Acute
[2017-10-11] MEDS ORDERED: D5W 1/4 NS W/ 20 KCl/L 1,000 ML IV SCH (09:15)
--- NOTE | 2017-10-11 09:24 | PDINTPN ---
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 Stable -continue frequent nebs * Acute respiratory failure secondary to COPD and surgery-off mechanical ventilation -will wean oxygen as tolerated * Status post laparoscopic repair of gastric ulcer-stable * Anemia-H&H low but stable * Paralyzed left hemidiaphragm * Hypertension-blood pressure stable * Pain-well controlled * PT/OT- * Ambulation * Disposition-likely stable for transfer to medical surgical floor Subjective: Sitting up in chair. Resting comfortably. Pain is well controlled. Objective: Vital Signs Temp Pulse Resp BP Pulse Ox 36.9 C 94 22 H 146/91 H 89 L 10/11/17 08:00 10/11/17 08:00 10/11/17 08:00 10/11/17 08:00 10/11/17 08:00 Microbiology 10/08/17 20:15 Gram Stain - Final Peritoneal Fluid - Aspirate Laboratory Results 10/11/17 04:25 10/11/17 04:25 10/10/17 10/11/17 10/12/17 05:59 05:59 05:59 Intake Total 1805 3030 Output Total 1740 1050 300 Balance 65 1980 -300 PT 17.7 SEC (12.0-15.0) H 10/08/17 20:28 INR 1.44 (0.83-1.16) H 10/08/17 20:28 - Time Spent With Patient Time Spent With Patient: 35 min of time spent with patient, over 1/2 involved coordination of care or counseling Physical Exam - Physical Exam General Appearance: WD/WN, alert, no apparent distress EENT: PERRL/EOMI Neck: non-tender, full range of motion, supple, normal inspection Respiratory: prolonged expiration, No respiratory distress, No wheezing Cardiac/Chest: normal peripheral pulses, regular rate, rhythm Peripheral Pulses: 2+: carotid (R), carotid (L), femoral (R), femoral (L), dorsalis-pedis (R), dorsalis-pedis (L) Abdomen: normal bowel sounds, non-tender, soft Male Genitalia: deferred Rectal: deferred Skin: normal color, warm/dry Extremities: normal range of motion, non-tender, normal inspection, normal capillary refill Neuro/Psych: no motor/sensory deficits, alert, normal mood/affect, oriented x 3 ICD10 Worksheet Patient Problems: Problems Problem Status Onset Abdominal pain in male Acute Chronic obstructive pulmonary disease with acute exacerbation Acute
[2017-10-11] MEDS: PANTOPRAZOLE SODIUM 40 MG VIAL IVP SCH ×2 (09:52→21:09)
[2017-10-11] MEDS: ENOXAPARIN 40 MG/0.4 ML SYR SC SCH (09:53)
[2017-10-11] MEDS ORDERED: POTASSIUM Cl (KCl) 100 ML IV SCH (10:30)
[2017-10-11] MEDS ORDERED: POTASSIUM Cl (KCl) 10 MEQ in NS 100 ML IV SCH (11:00)
[2017-10-11] MEDS: D5W 1,000 ML IV SCH (11:15)
[2017-10-11] MEDS: FLUTICASONE/SALMETER 250/50MCG DISKUS IH SCH ×2 (11:43→20:52)
[2017-10-11] MEDS: POTASSIUM Cl (KCl) 10 MEQ in NS 100 ML IV SCH (11:47)
--- NOTE | 2017-10-11 17:55 | HOSPPROG ---
Hospitalist Progress Note Assessment/Plan: Assessment: 81-year-old male presenting with acute perforated gastric ulcer and acute hypoxic respiratory failure and suspected peritonitis Plan: 1. Perforated gastric ulcer. Acute, unclear precipitant, postop day [address] Vidales for laparoscopic repair, in the setting of Plavix therapy and resultant suspected peritonitis -d/w Dr. Carbone, she recommends testing for H. pylori and tx if positive, cont bid PPI IV (cont PO as outpt), and f/u w/ GI to plan EGD (risk of perf/ complication high immediately following ulcer repair) 2. Acute on chronic hypoxic respiratory failure. Present on admission and not related to his surgery, required intubation -currently 5-9LPM 3. Acute atelectasis. Right lower lobe, incentive spirometer once able 4. Chronic steroid dependency and chronic immunosuppression. Underlying COPD, unclear why he is on prednisone 20 mg, does not appear to have an acute exacerbation -adjusted to home Pred 20 from IV 5. COPD. Chronic, continue on bronchodilator therapy, Atrovent, steroids, no evidence of acute exacerbation 6. Previous TIA. Currently holding Plavix given above perforation 7. Suspected postoperative ileus. Hypoactive bowel sounds, under the management of Dr. Mao 8. Bilateral lower extremity edema. Chronic per patient, give one dose IV lasix given worsening w/ IVF 9. Acute blood loss anemia. Hgb 12->8.6, no e/o ongoing blood loss, cont to monitor, hemodynamically stable 10. Peritonitis. POA, 2/2 gastric perf w/ Gamella growing on Cx, intra-abd pus noted in surgery, no abscess -D#3 Abx, cont Unasyn -get ID consult tomorrow for appropriate transitioning Abx Diet. Sips/Chips Prophylaxis. High risk patient, Lovenox 40 Code. Full Disposition. Anticipated discharge uncertain this time, likely to require SNF. High-level medical complexity, high risk of worsening morbidity and/or mortality , secondary to the issues as outlined above. Subjective: thirsty, less abd pain Objective: Vital Signs Temp Pulse Resp BP Pulse Ox 36.5 C 75 20 148/81 H 99 10/11/17 16:00 10/11/17 17:14 10/11/17 17:14 10/11/17 16:00 10/11/17 17:14 Microbiology 10/08/17 20:15 Gram Stain - Final Peritoneal Fluid - Aspirate Laboratory Results 10/11/17 04:25 10/11/17 04:25 10/10/17 10/11/17 10/12/17 05:59 05:59 05:59 Intake Total 1805 3030 Output Total 1740 1050 600 Balance 65 1980 -600 PT 17.7 SEC (12.0-15.0) H 10/08/17 20:28 INR 1.44 (0.83-1.16) H 10/08/17 20:28 - Physical Exam Constitutional: no apparent distress, not in pain, chronically ill appearing, uncomfortable Cardiovascular: regular rate and rhythym, no murmur, rub, or gallop, edema (1+ bilat LE), No irregularly irregular Respiratory: reduced air movement (shortened exp phase), expiratory wheeze, rhonchi (cough triggered w/ expiration), No respiratory distress Gastrointestinal: distension (mild), No normoactive bowel sounds (hypoactive bowel sounds), No tenderness, No guarding Skin: other (minimal erythema at surg sites) Neurologic: AAOx3, sensation intact bilaterally, No weakness Psychiatric: interacting appropriately, not anxious, not encephalopathic, thought process linear ICD10 Worksheet Patient Problems: Problems Problem Status Onset Chronic obstructive pulmonary disease with acute exacerbation Acute Abdominal pain in male Acute
[2017-10-11] MEDS ORDERED: FUROSEMIDE 20 MG/2 ML VIAL IVP ONE (17:57)
[2017-10-11] MEDS ORDERED: NON-FORMULARY NEW DRUG (Simvastatin [Zocor] 40 MG) PO SCH (21:00)
[2017-10-11] MEDS: ATORVASTATIN CALCIUM 20 MG TAB PO SCH (21:09)
[2017-10-11] MEDS: FLUTICASONE NASAL 120 SPRAYS/16 GM MDI NS SCH (21:09)
[2017-10-12] MEDS: D5W 1,000 ML IV SCH (03:15)
[2017-10-12] MEDS: AMPICILLIN/SULBACTAM 3 GM in NS 100 ML IV SCH ×4 (05:11→23:11)
[2017-10-12] MEDS: ACETYLCYSTEINE 10% IH/PO 4 ML VIAL IH SCH ×4 (05:13→23:37)
[2017-10-12] MEDS: IPRATROPIUM/ALBUTEROL 3 ML DEYVIAL IH SCH ×4 (05:13→23:37)
[2017-10-12 05:39] LABS: PLATELET COUNT 148 10^3/uL (150-400)
[2017-10-12] MEDS: FLUTICASONE/SALMETER 250/50MCG DISKUS IH SCH ×2 (08:02→23:37)
[2017-10-12] MEDS: PANTOPRAZOLE SODIUM 40 MG VIAL IVP SCH ×2 (09:07→21:28)
[2017-10-12] MEDS: ENOXAPARIN 40 MG/0.4 ML SYR SC SCH (09:07)
[2017-10-12] MEDS: LISINOPRIL 10 MG TAB PO SCH (09:14)
[2017-10-12] MEDS: predniSONE 20 MG TAB PO SCH (09:16)
--- NOTE | 2017-10-12 12:24 | GCON ---
[f rep st] CONSULTATION INFECTIOUS DISEASE CONSULTATION REFERRING PHYSICIAN: Luiz Pitts MD REASON FOR CONSULTATION: Peritonitis. CHIEF COMPLAINT: Peritonitis. HISTORY OF PRESENT ILLNESS: This is an 81-year-old gentleman with a past medical history significant for O2 dependent COPD, on steroids which he says is at 10 mg a day chronically, who came in with ulcia den onset of right-sided abdominal pain. He denied any fevers or chills leading up to that. He jose antonio ed any pain noticing prior to that. He did not have any lack of appetite, diarrhea, nausea, etc. He was seen by Surgery and taken to the OR, where he had a laparoscopy with repair of the gastric ulcer . Findings were that he had purulent fluid by the cecum and the omentum to the abdominal wall. Cult ures were taken at that time, and the Gram stain showed 4+ polys, 2+ mononuclear cells, no organisms, and it grew out rare Streptococcus parasanguinis and rare Gemella species. Patient has been on Unas yn since time of admission, was given a dose of vancomycin on the , which was then discontinued. He has had leukocytosis throughout the hospitalization. On the his white blood cell count went up to 14 and then came down to 12; today it is down to 8.7. Infectious Disease is now consulted for further evaluation and opinion. Today the patient states that he does not have any abdominal pain. He denies any nausea. He is only allowed to have ice chips, he is hungry. He is passing some minim al gas, but not having any bowel movements. He is chronically on oxygen and is currently at 5 L. He does not feel more short of breath than normal. He is not coughing or bringing up any phlegm more t dyson his baseline. REVIEW OF SYSTEMS: GENERAL: No fevers or shaking chills prior to admission. HEAD: No headaches. EYES: No change in vision. ENT: No sore throat, difficulty swallowing, ear pain or ear drainage. CARDIOVASCULAR: No chest pain or rapid heart beat. RESPIRATORY: At baseline. ABDOMEN: Currently no abdominal pain, nausea or vomiting. Not having any bowel movements, is passing some gas. : No dysuria. MUSCULOSKELETAL: Denies any joint pains or muscle aches. SKIN: No rashes. Rest of the 10-point review of systems essentially negative, except above. PAST MEDICAL HISTORY: Significant for O2 dependent COPD; also on low-dose steroids, hyperlipidemia, TIA, hypertension, partially paralyzed left hemidiaphragm. PAST SURGICAL HISTORY: As above. ALLERGIES: No known drug allergies. SOCIAL HISTORY: He is a former smoker, quit about 7 years ago. Drinks alcohol socially. Lives with his . Has a puppy who is healthy. Has not left [place] recently. FAMILY HISTORY: He is adopted. MEDICATIONS: As per MAR. PHYSICAL EXAMINATION: VITAL SIGNS: Temperature current 36.4, pulse is 73, blood pressure 122/67, sa turations are 91% on 5 L O2 via OxyMask, respiratory rate is 18. GENERAL: Patient is resting in bed . No acute respiratory distress. Awake, alert and oriented x3. HEENT: Eyes without conjunctival i njection. No petechiae noted. Oropharynx is clear. There is no posterior pharyngeal erythema or th de la garza. He has several missing teeth, several teeth with fillings. He has some mild gingivitis noted. CARDIOVASCULAR: S1, S2. Regular rate and rhythm. He has a soft systolic murmur appreciated. RES PIRATORY: Mild coarse breath sounds bilaterally. ABDOMEN: Positive bowel sounds in all 4 quadrants . Soft, nondistended, nontender on palpation. Nephrostomy sites noted. EXTREMITIES: No lower extr emity edema. MUSCULOSKELETAL: No obvious joint effusions or pain on palpation of the joints. SKIN: No obvious rashes. LABORATORY DATA: White blood cell count 8.7, hemoglobin 7.5, platelets 148, neutrophil count 91%. S odium 148, potassium 3.8, chloride 114, bicarb is 33, BUN is 0.9. Blood cultures x2 sets done on adm ission: No growth to date. Nasal culture: No organisms tested. Peritoneal fluid with Strep parasa nguinis and Gemella. Fungal culture is pending. Chest x-ray: Some bibasilar consolidation noted. ASSESSMENT: Perforated gastric ulcer with purulent peritoneal contamination, status post laparoscopy with repair. PLAN: The patient is currently on Unasyn. I have spoken to micro for further workup on Gemella for susceptibilities. In review of the literature, there have been some reports of Gemella being resista nt to beta-lactones. Will reinitiate vancomycin in the interim at 1.25 g daily with a followup troug h prior to the 4th dose. We will also add micafungin for antifungal coverage given the above clinica l presentation, until all cultures are finalized and no isolation of any fungus. The plan of care wa s discussed with the patient and his at the bedside. Care coordinated with the hospitalist team along with Pharmacy. Thank you very much for the opportunity to care for your patient in consultation. /[id number]/MODL
[2017-10-12] MEDS: MICAFUNGIN NA 100 MG in NS 100 ML IV SCH (12:30)
--- NOTE | 2017-10-12 12:43 | HOSPPROG ---
Hospitalist Progress Note Assessment/Plan: # gastric ulcer perforation s/p repair - strep parasanguinous and gamella from operative cultures - post-op management per surgery - ileus improving - cont vanc, unasyn, fluconazole per ID # peritonitis d/t above # acute hypoxic resp failure - extubated - d/t possible pna, vol overload, underlying COPD, atelectasis # pulm edema - schedule lasix # COPD - not clearly wheezing - cont home prednisone (20 mg) # chronic steroid use - cont prednisone # hx TIA - holding plavix post-op; start in a few days # ABLA post-op - stabilizing # hyperNa - replace free H2O Subjective: no acute events; ongoing abd pain Objective: Vital Signs Temp Pulse Resp BP Pulse Ox 36.4 C 71 20 122/67 H 92 10/12/17 08:40 10/12/17 11:35 10/12/17 11:35 10/12/17 09:14 10/12/17 11:35 Microbiology 10/08/17 20:15 Gram Stain - Final Peritoneal Fluid - Aspirate Laboratory Results 10/12/17 04:30 10/12/17 04:30 10/11/17 10/12/17 10/13/17 05:59 05:59 05:59 Intake Total 3030 2788 Output Total 1050 1600 Balance 1980 1188 PT 17.7 SEC (12.0-15.0) H 10/08/17 20:28 INR 1.44 (0.83-1.16) H 10/08/17 20:28 chart reviewed imaging reviewed ICD10 Worksheet Patient Problems: Problems Problem Status Onset Chronic obstructive pulmonary disease with acute exacerbation Acute Abdominal pain in male Acute
[2017-10-12] MEDS ORDERED: D5W 1/2 NS 1,000 ML IV SCH (12:45)
[2017-10-12] MEDS ORDERED: D5W 1,000 ML IV SCH (12:45)
[2017-10-12] MEDS: VANCOMYCIN 1.25 GM in D5W 250 ML IV SCH (13:37)
--- NOTE | 2017-10-12 15:11 | SOAPPROG ---
SOAP Progress Note Assessment/Plan: Assessment/plan: * Severe chronic obstructive pulmonary disease-patient on 24/7 home oxygen. Stable -continue frequent nebs * Acute respiratory failure secondary to COPD and surgery-stable off mechanical ventilation -FiO2 at home level * Status post laparoscopic repair of gastric ulcer-stable * Anemia-H&H low but stable * Paralyzed left hemidiaphragm * Hypertension-blood pressure stable * Pain-well controlled * PT/OT- * Ambulation-patient is still somewhat weak Subjective: Sitting up in bed. Comfortable. Breathing easier. Oxygen requirements are down Objective: Vital Signs Temp Pulse Resp BP Pulse Ox 36.4 C 71 20 122/67 H 92 10/12/17 08:40 10/12/17 11:35 10/12/17 11:35 10/12/17 09:14 10/12/17 11:35 Microbiology 10/08/17 20:15 Gram Stain - Final Peritoneal Fluid - Aspirate Laboratory Results 10/12/17 04:30 10/12/17 04:30 10/11/17 10/12/17 10/13/17 05:59 05:59 05:59 Intake Total 3030 2788 Output Total 1050 1600 Balance 1980 1188 PT 17.7 SEC (12.0-15.0) H 10/08/17 20:28 INR 1.44 (0.83-1.16) H 10/08/17 20:28 - Time Spent With Patient Time Spent With Patient: 25 min of time spent with patient, over 1/2 involved with coordination of care or counseling Physical Exam - Physical Exam General Appearance: alert, no apparent distress EENT: PERRL/EOMI, normal ENT inspection Neck: non-tender, full range of motion, supple, normal inspection Respiratory: decreased breath sounds, rhonchi (Few), prolonged expiration, No wheezing Cardiac/Chest: normal peripheral pulses, regular rate, rhythm, systolic murmur Abdomen: normal bowel sounds, non-tender, soft Male Genitalia: deferred Rectal: deferred Skin: normal color, warm/dry Extremities: normal range of motion, non-tender, normal inspection, normal capillary refill Neuro/Psych: alert ICD10 Worksheet Patient Problems: Problems Problem Status Onset Abdominal pain in male Acute Chronic obstructive pulmonary disease with acute exacerbation Acute
--- NOTE | 2017-10-12 16:26 | ASMTCMCOM ---
CM Note CM Note Notes: Discussed SNF options with pt. He is not happy at thought of discharging to a SNF. Explained that home care agencies unlikely to follow him as he lives in the [facility]. Encouraged him to discuss recommendation with therapists so they can explain why a SNF d/c is best option. He would like to think about it. Also spoke with his RN re SNF recommendation and all involved with his care will encourage pt on best d/c plan option. CM will continue to follow. Date Signed: 10/12/2017 04:26 PM Electronically Signed By:EMILEE Gustafson
[2017-10-12] MEDS: FUROSEMIDE 20 MG/2 ML VIAL IVP SCH (16:56)
[2017-10-12] MEDS: ATORVASTATIN CALCIUM 20 MG TAB PO SCH (21:28)
[2017-10-13] MEDS: FLUTICASONE NASAL 120 SPRAYS/16 GM MDI NS SCH ×2 (01:10→23:41)
[2017-10-13 04:40] LABS: PLATELET COUNT 143 10^3/uL (150-400)
[2017-10-13] MEDS: AMPICILLIN/SULBACTAM 3 GM in NS 100 ML IV SCH ×4 (04:47→23:30)
[2017-10-13] MEDS: ACETYLCYSTEINE 10% IH/PO 4 ML VIAL IH SCH ×5 (05:36→23:52)
[2017-10-13] MEDS: IPRATROPIUM/ALBUTEROL 3 ML DEYVIAL IH SCH ×4 (05:36→21:44)
[2017-10-13] MEDS: FLUTICASONE/SALMETER 250/50MCG DISKUS IH SCH ×2 (08:45→21:45)
[2017-10-13] MEDS: FUROSEMIDE 20 MG/2 ML VIAL IVP SCH ×2 (08:56→15:53)
[2017-10-13] MEDS: PANTOPRAZOLE SODIUM 40 MG VIAL IVP SCH ×2 (08:56→23:37)
[2017-10-13] MEDS: ENOXAPARIN 40 MG/0.4 ML SYR SC SCH (08:57)
[2017-10-13] MEDS: MICAFUNGIN NA 100 MG in NS 100 ML IV SCH (08:57)
[2017-10-13] MEDS: VANCOMYCIN 1.25 GM in D5W 250 ML IV SCH (11:15)
[2017-10-13] MEDS: methylPREDNISolone SOD SUCC 40 MG/ML VIAL IVP SCH ×3 (11:15→23:42)
[2017-10-13] MEDS: LISINOPRIL 10 MG TAB PO SCH (11:20)
[2017-10-13] MEDS: predniSONE 20 MG TAB PO SCH (11:25)
--- NOTE | 2017-10-13 12:43 | PCMIDPN ---
Assessment/Plan: Assessment/Plan: 1. Polymicrobial peritonitis secondary to perforated gastric ulcer: - Brief op noted reveal purulence around cecum. - Cx with Strep parasanguious and Gemella so far. -fungal cx in progress -Sensitivities on gemella pending -Currently on Vanco, unasyn, micafungin pending final cultures/sensi - WBc , creatinine stable -GI pathogen study negative -vanco trough for am, prior to third dose - care coordinated with RN/ meds vanco 1.25gm daily-10/12 unasyn 3g q6-10/08 micafungin 100mg daiy- 10/12 Subjective: afebrile. coughing more today. abdomen feels better with pain only when touched. having liquid stools twice today. wants to eat. Objective: Vital Signs Temp Pulse Resp BP Pulse Ox 36.6 C 72 22 H 157/86 H 94 10/13/17 07:36 10/13/17 07:36 10/13/17 07:36 10/13/17 07:36 10/13/17 07:36 Microbiology 10/13/17 09:50 Gastrointestinal Tract Panel (PCR) - Final Stool No Organism Detected 10/08/17 20:15 Gram Stain - Final Peritoneal Fluid - Aspirate Laboratory Results 10/13/17 04:15 10/13/17 04:15 10/12/17 10/13/17 10/14/17 05:59 05:59 05:59 Intake Total 2788 2324 Output Total 1600 0597 2850 Balance 1188 -1001 -6980 - Physical Exam General Appearance: alert, no apparent distress Respiratory: coarse breath sounds Cardiac/Chest: regular rate, rhythm Extremities: No swelling Abdomen: normal bowel sounds, soft, tender (mild), No distended Skin: No erythema ICD10 Worksheet Patient Problems: Problems Problem Status Onset Abdominal pain in male Acute Chronic obstructive pulmonary disease with acute exacerbation Acute
--- NOTE | 2017-10-13 13:14 | SOAPPROG ---
SOAP Progress Note Assessment/Plan: Assessment/plan: * Severe chronic obstructive pulmonary disease-patient on 24/ home oxygen. Stable -continue frequent nebs * Acute respiratory failure secondary to COPD and surgery-stable off mechanical ventilation -FiO2 at home level * Status post laparoscopic repair of gastric ulcer-stable * Anemia-H&H low but stable * Paralyzed left hemidiaphragm * Hypertension-blood pressure stable * Pain-well controlled * PT/OT- * Ambulation-patient is still somewhat weak * Disposition-? Subjective: Resting comfortably in bed. Pain is well tolerated. Patient is less breathless. Objective: Vital Signs Temp Pulse Resp BP Pulse Ox 36.6 C 72 24 H 157/86 H 95 10/13/17 07:36 10/13/17 12:22 10/13/17 12:22 10/13/17 07:36 10/13/17 12:22 Microbiology 10/13/17 09:50 Gastrointestinal Tract Panel (PCR) - Final Stool No Organism Detected 10/08/17 20:15 Gram Stain - Final Peritoneal Fluid - Aspirate Laboratory Results 10/13/17 04:15 10/13/17 04:15 10/12/17 10/13/17 10/14/17 05:59 05:59 05:59 Intake Total 2788 2324 Output Total 1600 3325 2850 Balance 1188 -1001 -2850 PT 17.7 SEC (12.0-15.0) H 10/08/17 20:28 INR 1.44 (0.83-1.16) H 10/08/17 20:28 - Time Spent With Patient Time Spent With Patient: 25 min of time spent with patient, over 1/2 involved with coordination of care or counseling Physical Exam - Physical Exam General Appearance: alert, no apparent distress EENT: PERRL/EOMI Neck: non-tender, full range of motion, supple, normal inspection Respiratory: decreased breath sounds, rhonchi, prolonged expiration, No wheezing Cardiac/Chest: normal peripheral pulses, regular rate, rhythm Peripheral Pulses: 2+: carotid (R), carotid (L), femoral (R), femoral (L), dorsalis-pedis (R), dorsalis-pedis (L) Abdomen: normal bowel sounds, non-tender, soft Male Genitalia: deferred Rectal: deferred Skin: normal color, warm/dry Extremities: normal range of motion, non-tender, normal inspection, normal capillary refill Neuro/Psych: alert ICD10 Worksheet Patient Problems: Problems Problem Status Onset Abdominal pain in male Acute Chronic obstructive pulmonary disease with acute exacerbation Acute
--- NOTE | 2017-10-13 13:38 | ECHO ---
[email or web address] [address] Main: [phone] Fax: Transthoracic Echocardiogram Name: DEEPIKA COX MR#: [id number] Study Date: 10/12/2017 Study Time: 01:21 PM Date of : 1935 Age: 81 year(s) Height: 177.8 cm (70 in.) Weight: 67.59 kg (149 lb.) BSA: 1.84 m2 Gender: Male Examination: Echo Indication: COPD, Respiratory Failure, Murmur Image Quality: Contrast: Requested by: Boyd Blackwood BP: 122 mmHg/67 mmHg Heart Rate: 149 bpm Rhythm: Normal sinus rhythm Indication: COPD, Respiratory Failure, Murmur Procedure Staff Snow Removal/Plowing: Rodrigo Ponce Reading Physician: Luiz Rashid Requesting Provider: Conclusions: Normal size left ventricle. No LV hypertrophy. Normal global systolic LV function. EF is 63 %. No regional wall motion abnormality. The mitral valve is normal in appearance and function. Minimal aortic cusp calcification is noted. No aortic valve stenosis is present. The tricuspid valve appears normal. Trivial tricuspid valve regurgitation. Pulmonary valve not well visualized. Measurements: Chambers Valvular Assessment AV/MV Valvular Assessment TV/PV Normal Normal Normal Name Value Range Name Value Range Name Value Range Ao Michelle (MM): 3.2 cm (2.2 cm-3.7 AV Vmax: 1.54 m/s (1 m/s-1.7 cm) m/s) IVSd (2D): 1.0 cm (0.6 cm-1.1 AV maxP mmHg ( - ) cm) AV meanP mmHg ( - ) LVDd (2D): 3.4 cm (4.2 cm-5.9 LVOT Vmax: 0.92 m/s (0.7 m/s-1.1 cm) m/s) LVDs (2D): 2.2 cm (2.1 cm-4 VINCENT (Vmax): 1.7 cm2 ( - ) cm) VINCENT (VTI): 1.8 cm ( - ) LVPWd (2D): 1.2 cm (0.6 cm-1 MV E Vmax: 1.07 m/s ( - ) cm) MV A Vmax: 1.05 m/s ( - ) LVOTd 1.9 cm 1.9 cm mm MV E/A: 1.02 ( - ) LVEF (2D): 63 (>=54 %) Continued Measurements: Patient: DEEPIKA COX Study Date: 10/12/2017 Page 1 of 2 01:21 PM Valvular Assessment AV/MV Name Value MV E/E' Septal: 19.20 MV E/E' Lateral: 24.90 Findings: Left Ventricle: Normal size left ventricle. No LV hypertrophy. Normal global systolic LV function. EF is 63 %. No regional wall motion abnormality. Diastolic dysfunction is present. . Right Ventricle: Normal size right ventricle. Left Atrium: The left atrium is normal in size. Right Atrium: The right atrium is normal in size. Mitral Valve: The mitral valve is normal in appearance and function. Aortic Valve: Minimal aortic cusp calcification is noted. No aortic valve stenosis is present. There is no aortic valve regurgitation. Tricuspid Valve: The tricuspid valve appears normal. Trivial tricuspid valve regurgitation. Pulmonic Valve: Pulmonary valve not well visualized. Aorta: The aorta is not visualized. Pericardium: No pericardial effusion. (No Signature Object) Patient: DEEPIKA COX Study Date: 10/12/2017 Page 2 of 2 01:21 PM [id number]
--- NOTE | 2017-10-13 14:39 | HOSPPROG ---
Hospitalist Progress Note Assessment/Plan: # gastric ulcer perforation s/p repair - strep parasanguinous and gamella from operative cultures - post-op management per surgery - ileus resolved; advancing to clears today - cont vanc, unasyn, fluconazole per ID - protonix # peritonitis d/t above # acute hypoxic resp failure - extubated - d/t possible pna, vol overload, underlying COPD, atelectasis # pulm edema - schedule lasix, follow closely # COPD - not clearly wheezing - start solu-medrol IV while taking little PO # chronic steroid use and immunosuppression - cont steroids # hx TIA - holding plavix post-op; start in a few days # ABLA post-op - stabilizing # hyperNa - replace free H2O # debilitation - PT/OT; will needs SNF Subjective: needs to have a BM Objective: Vital Signs Temp Pulse Resp BP Pulse Ox 36.6 C 72 24 H 157/86 H 95 10/13/17 07:36 10/13/17 12:22 10/13/17 12:22 10/13/17 07:36 10/13/17 12:22 Microbiology 10/13/17 09:50 Gastrointestinal Tract Panel (PCR) - Final Stool No Organism Detected 10/08/17 20:15 Gram Stain - Final Peritoneal Fluid - Aspirate Laboratory Results 10/13/17 04:15 10/13/17 04:15 10/12/17 10/13/17 10/14/17 05:59 05:59 05:59 Intake Total 2788 2324 Output Total 1600 3325 2850 Balance 1188 -1001 -2850 PT 17.7 SEC (12.0-15.0) H 10/08/17 20:28 INR 1.44 (0.83-1.16) H 10/08/17 20:28 - Physical Exam Constitutional: chronically ill appearing Eyes: anicteric sclera Cardiovascular: regular rate and rhythym (distant S1S2) Respiratory: no respiratory distress Gastrointestinal: soft, non-tender abdomen, other (incisions ok) Genitourinary: No goff in urethra Skin: warm Neurologic: AAOx3 Psychiatric: not anxious ICD10 Worksheet Patient Problems: Problems Problem Status Onset Chronic obstructive pulmonary disease with acute exacerbation Acute Abdominal pain in male Acute
--- NOTE | 2017-10-13 15:58 | SOAPPROG ---
SOAP Progress Note Assessment/Plan: Assessment: STATUS POST GASTRIC PERFORATION WITH PERITONITIS / WOUND HEALING WELL / AFEBRILE/ POSITIVE BOWEL SOUNDS AND FLATUS / Plan: ADVANCE DIET TO CLEAR 10/13/17 15:58 Objective: Vital Signs Temp Pulse Resp BP Pulse Ox 36.3 C 82 19 146/88 H 93 10/13/17 15:27 10/13/17 15:27 10/13/17 15:27 10/13/17 15:27 10/13/17 15:27 Microbiology 10/13/17 09:50 Gastrointestinal Tract Panel (PCR) - Final Stool No Organism Detected 10/08/17 20:15 Gram Stain - Final Peritoneal Fluid - Aspirate Laboratory Results 10/13/17 04:15 10/13/17 04:15 10/12/17 10/13/17 10/14/17 05:59 05:59 05:59 Intake Total 2788 2324 Output Total 1600 3325 3550 Balance 1188 -1001 -3550 PT 17.7 SEC (12.0-15.0) H 10/08/17 20:28 INR 1.44 (0.83-1.16) H 10/08/17 20:28 ICD10 Worksheet Patient Problems: Problems Problem Status Onset Abdominal pain in male Acute Chronic obstructive pulmonary disease with acute exacerbation Acute
[2017-10-13] MEDS: ATORVASTATIN CALCIUM 20 MG TAB PO SCH (23:30)
[2017-10-14] MEDS: AMPICILLIN/SULBACTAM 3 GM in NS 100 ML IV SCH ×2 (04:53→10:23)
[2017-10-14] MEDS: IPRATROPIUM/ALBUTEROL 3 ML DEYVIAL IH SCH ×4 (05:35→19:50)
[2017-10-14] MEDS: ACETYLCYSTEINE 10% IH/PO 4 ML VIAL IH SCH ×3 (05:40→15:10)
[2017-10-14] MEDS: methylPREDNISolone SOD SUCC 40 MG/ML VIAL IVP SCH ×2 (06:28→22:21)
--- NOTE | 2017-10-14 08:19 | HOSPPROG ---
Hospitalist Progress Note Assessment/Plan: # gastric ulcer perforation with peritonitis s/p repair POD #6 - strep parasanguinous and gamella from operative cultures - post-op management per surgery - ileus resolved; advance diet as tolerated - cont vanc, unasyn, fluconazole per ID - IV protonix, change to po # acute hypoxic resp failure - required intubation, extubated 1 week ago, d/t possible pna, vol overload, underlying COPD, atelectasis - on home O2 # pulm edema - net neg >5L. CXR improved today though ?skin fold vs ptx noted - repeat cxr to r/o ptx - d/c IV lasix - recheck weight today (last wt 68 kg 4 days ago) # COPD - on home O2 (4-5 LPM) and uses chronic prednisone 20 mg daily. No appreciable wheezing - wean IV solumedrol - cont qid duonebs, advair, mucomyst # chronic steroid use and immunosuppression - wean steroids as above # hx TIA - holding plavix post-op; start in a few days # ABLA post-op - stabilizing, has not required transfusion # hyperNa - resolved with free water repletion -d/c D5W # FEN - tolerating clears, adat # DVT PPLX - Lovenox # debilitation - PT/OT; will need SNF Subjective: Pt feels better, but very weak. Requires max assist to stand. Denies CP, SOB or abdominal pain. Had soft BM yesterday. Tolerating clears. No fevers. Objective: Vital Signs Temp Pulse Resp BP Pulse Ox 36.6 C 70 12 136/80 H 90 L 10/14/17 04:00 10/14/17 04:00 10/14/17 04:00 10/14/17 04:00 10/14/17 04:00 Microbiology 10/08/17 15:10 Blood Culture - Final Blood 10/08/17 14:50 Blood Culture - Final Blood 10/08/17 20:15 Gram Stain - Final Peritoneal Fluid - Aspirate 10/13/17 09:50 Gastrointestinal Tract Panel (PCR) - Final Stool No Organism Detected Laboratory Results 10/13/17 04:15 10/14/17 05:30 10/13/17 10/14/17 10/15/17 05:59 05:59 05:59 Intake Total 2324 2176 Output Total 1383 5976 Balance -1005 -3553 PT 17.7 SEC (12.0-15.0) H 10/08/17 20:28 INR 1.44 (0.83-1.16) H 10/08/17 20:28 - Physical Exam Constitutional: chronically ill appearing Eyes: PERRL Ears, Nose, Mouth, Throat: moist mucous membranes Cardiovascular: regular rate and rhythym Respiratory: no respiratory distress, reduced air movement Gastrointestinal: normoactive bowel sounds, soft, non-tender abdomen, other ( incision c/d/i) Skin: warm Musculoskeletal: generalized weakness Neurologic: AAOx3 Psychiatric: interacting appropriately ICD10 Worksheet Patient Problems: Problems Problem Status Onset Abdominal pain in male Acute Chronic obstructive pulmonary disease with acute exacerbation Acute
[2017-10-14] MEDS: MICAFUNGIN NA 100 MG in NS 100 ML IV SCH (09:07)
[2017-10-14] MEDS: ENOXAPARIN 40 MG/0.4 ML SYR SC SCH (09:10)
[2017-10-14] MEDS: PANTOPRAZOLE SODIUM 40 MG VIAL IVP SCH ×2 (09:10→22:22)
[2017-10-14] MEDS: LISINOPRIL 10 MG TAB PO SCH (09:15)
--- NOTE | 2017-10-14 09:33 | SOAPPROG ---
SOAP Progress Note Assessment/Plan: Assessment/plan: 81yo M POD #6 s/p repair of gastric perf Grossly contaminated abdomen - continue ABX. Appreciate ID Tolerating clear liquids without n/v/d Advance diet as tolerated +flatus and BMs Appreciate hospitalist management of comorbidities S: Pain well controlled. No nausea. Passing flatus and having bowel movements. No shortness of breath O: Sitting upright in bed eating jello, comfortable, NAD No increased WOB +BS throughout, soft, nondistended, nontender to palpation, incisions CDI Objective: Vital Signs Temp Pulse Resp BP Pulse Ox 36.6 C 70 12 145/82 H 90 L 10/14/17 04:00 10/14/17 04:00 10/14/17 04:00 10/14/17 09:15 10/14/17 04:00 Microbiology 10/08/17 15:10 Blood Culture - Final Blood 10/08/17 14:50 Blood Culture - Final Blood 10/08/17 20:15 Gram Stain - Final Peritoneal Fluid - Aspirate 10/13/17 09:50 Gastrointestinal Tract Panel (PCR) - Final Stool No Organism Detected Laboratory Results 10/13/17 04:15 10/14/17 05:30 10/13/17 10/14/17 10/15/17 05:59 05:59 05:59 Intake Total 2072 2176 Output Total 7466 6511 Balance -1001 -8375 PT 17.7 SEC (12.0-15.0) H 10/08/17 20:28 INR 1.44 (0.83-1.16) H 10/08/17 20:28 ICD10 Worksheet Patient Problems: Problems Problem Status Onset Abdominal pain in male Acute Chronic obstructive pulmonary disease with acute exacerbation Acute
[2017-10-14] MEDS ORDERED: IPRATROPIUM/ALBUTEROL 3 ML DEYVIAL ONE (09:56)
[2017-10-14] MEDS: FLUTICASONE/SALMETER 250/50MCG DISKUS IH SCH ×2 (09:58→19:50)
[2017-10-14] MEDS: VANCOMYCIN 1.25 GM in D5W 250 ML IV SCH (12:11)
[2017-10-14] MEDS ORDERED: methylPREDNISolone SOD SUCC 40 MG/ML VIAL IVP SCH (14:00)
[2017-10-14] MEDS ORDERED: NS 1,000 ML IV ONE (17:16)
[2017-10-14] MEDS ORDERED: POTASSIUM Cl (KCl) 20 MEQ in 1/2 NS 1,000 ML IV SCH (17:30)
[2017-10-14] MEDS: AMPICILLIN/SULBACTAM 3 GM in STERILE WATER INJ 8 ML IV SCH ×2 (18:28→23:20)
--- NOTE | 2017-10-14 20:52 | PCMIDPN ---
Assessment/Plan: Assessment/Plan: * Polymicrobial peritonitis associated with gastric ulcer perforation with findings of purulence adjacent to cecum: Culture show growth of Streptococcus parasanguinous and Gemella. Continue vancomycin, Unasyn and micafungin. Vancomycin being utilized in event any beta-lactam resistance present in Gemella which has been reported. Continue to follow creatinine and vancomycin levels carefully. Do not favor increasing vancomycin dose based on trough as would like to limit potential nephrotoxicity. 10/14/17 20:49 10/14/17 20:51 Subjective: Patient feeling better without significant ongoing abdominal pain. Objective: Vital Signs Temp Pulse Resp BP Pulse Ox 36.6 C 96 12 112/66 96 10/14/17 19:37 10/14/17 19:37 10/14/17 19:52 10/14/17 19:37 10/14/17 19:52 Microbiology 10/08/17 20:15 Gram Stain - Final Peritoneal Fluid - Aspirate 10/08/17 15:10 Blood Culture - Final Blood 10/08/17 14:50 Blood Culture - Final Blood Laboratory Results 10/14/17 12:40 10/14/17 05:30 10/13/17 10/14/17 10/15/17 05:59 05:59 05:59 Intake Total 2324 2176 1200 Output Total 3325 6454 400 Balance -1001 -4275 800 Vancomycin # 3 Unasyn # 7 Micafungin # 3 Microbiology 10/08/17 20:15 Peritoneal Fluid - Aspirate Gram Stain - Final 10/08/17 20:15 Peritoneal Fluid - Aspirate Anaerobic Culture - Preliminary Streptococcus Parasanguinis Gemella Species Laboratory Tests 10/14/17 10:22 Vancomycin Trough 5.7 - Physical Exam General Appearance: alert, no apparent distress EENT: No scleral icterus Cardiac/Chest: regular rate, rhythm Abdomen: non-tender, other (Surgical sites intact without erythema or drainage) , No distended Neuro/Psych: alert ICD10 Worksheet Patient Problems: Problems Problem Status Onset Abdominal pain in male Acute Chronic obstructive pulmonary disease with acute exacerbation Acute
[2017-10-14] MEDS ORDERED: TRANEXAMIC ACID 1,000 MG in NS 500 ML IV ONE (21:11)
[2017-10-14] MEDS ORDERED: TRANEXAMIC ACID 1,000 MG in NS 100 ML IV ONE (21:11)
--- NOTE | 2017-10-14 21:13 | HOSPPROG ---
Hospitalist Progress Note Assessment/Plan: Called emergently to bedside for large maroon BM. Chart reviewed PE: 86/55, HR 100 alert, oriented abd S, NT, surgical incisions clean iStat hgb 5.[address] Lawrence and Laura. Plan: - transfer to ICU - concern that emergent EGD will be low utility since he ate dinner two hours ago - transfuse 2U O neg PRBC - type and screen two more units - will attempt to stabilize overnight and perform EGD in the am; may need full surgical resection of the ulcer - if he becomes unstable, GI (Dr Sanchez) and surgery (Dr Lawrence) are available for EGD vs laparotomy - erythromycin to try to clear stomach in case emergent EGD needed - TXA - trend H/H 40 mins floor CC time Objective: Vital Signs Temp Pulse Resp BP Pulse Ox 36.6 C 96 12 112/66 96 10/14/17 19:37 10/14/17 19:37 10/14/17 19:52 10/14/17 19:37 10/14/17 19:52 Microbiology 10/08/17 20:15 Gram Stain - Final Peritoneal Fluid - Aspirate 10/08/17 15:10 Blood Culture - Final Blood 10/08/17 14:50 Blood Culture - Final Blood Laboratory Results 10/14/17 12:40 10/14/17 05:30 10/13/17 10/14/17 10/15/17 05:59 05:59 05:59 Intake Total 2324 2176 1200 Output Total 3325 6450 400 Balance -1001 -4274 800 PT 17.7 SEC (12.0-15.0) H 10/08/17 20:28 INR 1.44 (0.83-1.16) H 10/08/17 20:28 ICD10 Worksheet Patient Problems: Problems Problem Status Onset Chronic obstructive pulmonary disease with acute exacerbation Acute Abdominal pain in male Acute
[2017-10-14] MEDS ORDERED: METOCLOPRAMIDE 10 MG/2 ML VIAL IVP ONE (21:19)
[2017-10-14 21:28] LABS: PLATELET COUNT 227 10^3/uL (150-400)
[2017-10-14] MEDS: ATORVASTATIN CALCIUM 20 MG TAB PO SCH (22:12)
[2017-10-14] MEDS: FLUTICASONE NASAL 120 SPRAYS/16 GM MDI NS SCH (22:13)
[2017-10-15] MEDS: ACETYLCYSTEINE 10% IH/PO 4 ML VIAL IH SCH ×3 (00:32→12:19)
[2017-10-15] MEDS: AMPICILLIN/SULBACTAM 3 GM in STERILE WATER INJ 8 ML IV SCH ×4 (04:58→23:28)
[2017-10-15] MEDS: IPRATROPIUM/ALBUTEROL 3 ML DEYVIAL IH SCH ×4 (06:10→20:47)
[2017-10-15] MEDS: methylPREDNISolone SOD SUCC 40 MG/ML VIAL IVP SCH (08:07)
[2017-10-15] MEDS: PANTOPRAZOLE SODIUM 40 MG VIAL IVP SCH ×2 (08:07→21:28)
[2017-10-15] MEDS: MICAFUNGIN NA 100 MG in NS 100 ML IV SCH (08:27)
[2017-10-15] MEDS ORDERED: PHYTONADIONE 10 MG in NS 50 ML IV ONE (08:37)
--- NOTE | 2017-10-15 08:40 | GCON ---
[f rep st] CONSULTATION INPATIENT CONSULTATION REQUESTING PHYSICIAN: Austin Dawkins. REASON FOR CONSULTATION: Bloody stool. CHIEF COMPLAINT: Bloody stool. HISTORY OF PRESENT ILLNESS: The patient is a pleasant 81-year-old male with multiple medical problem s, including steroid and oxygen dependent COPD, who was admitted to the hospital on 10/08/2017, for t he evaluation of a fall associated with abdominal pain. Quickly on presentation it was recognized th at he had peritoneal signs. Even prior to imaging, he was brought to the operating room for laparosc opy. He was diagnosed with a perforated gastric ulcer. He reports that over the ensuing several weeks, he had been using nonsteroidal anti-inflammatory ther apies on an almost daily basis. This was due to chronic low back discomfort. He even reports approx imately 1 month ago, he had a fall which increased his back discomfort. He admits to frequent change s in bowel habits including darker stools periodically, over the last several weeks. His postoperative course was relatively uneventful until last night, when he had episodes of melena a nd maroon stool associated with a brisk fall in his hematocrit. He reports no hematemesis. He repor ts no abdominal pain. He has had little to no nausea or vomiting. He reports no fevers, chills, sweats. He remains on antibiotic therapies given his recent perforated ulcer surgery. Prior to this last few weeks, he reports no abdominal symptoms or episodes of dark stool. ALLERGIES: None. CURRENT MEDICATIONS: Include Tylenol, albuterol, Unasyn, Lipitor, Flonase, Dilaudid, Zestril, Solu-M edrol, Zofran, IV Protonix, Advair, vancomycin. Yesterday evening he received a dose of IV erythromy luis. He had been on Lovenox, this was discontinued yesterday. He also received a dose of tranexamic acid. SOCIAL HISTORY: He does not smoke or use drugs. FAMILY HISTORY: Negative for ulcer. REVIEW OF SYSTEMS: A complete 14-point review of systems was undertaken with the patient and is nega tive except for those pertinent positives and negatives in the History of Present Illness. PHYSICAL EXAM: GENERAL: This is an elderly male in no apparent distress. HEENT: His pupils are eq ual, round, reactive to light and accommodation. His sclerae are nonicteric. His oropharynx is nae r. NECK: Supple without lymphadenopathy. HEART: Regular without murmur. ABDOMEN: Soft with mini mal tenderness throughout. EXTREMITIES: Are free of cyanosis, clubbing, and edema. NEURO: Grossly nonfocal. SKIN: Reveals no ecchymosis. PSYCH: Exam reveals normal mood and affect. LABORATORY TESTING: On October 08, hematocrit was 38.7. Postoperatively, his hematocrit ranged from 22-25. Yesterday evening his hematocrit fell to 17. With transfusion it has rebounded to 29.8. So dium of 143, potassium of 4.1, chloride of 112, BUN of 29, creatinine of 0.9. Helicobacter pylori an tibody was negative. IMPRESSION/RECOMMENDATIONS: The patient is an 81-year-old male, admitted on 10/08/2017 with peritoni tis. Ultimately diagnosed with perforated gastric ulcer. During his postoperative course, last even ing, he presented with clinical symptoms concerning for bleeding ulcer. In order to resolve this dif ferential, in hopes of finding a treatable source of ulcer bleeding, I recommend he undergo upper end oscopy. Given his age, recent surgical status, potentially active bleeding, underlying COPD, he will be at increased risk for the procedure and sedation. I do not, however, think those risks outweigh the potential benefits. The patient and I discussed the possibility of worsening bleeding with intervention and the need for surgical and/or Interventional Radiology repair should bleeding worsen. Meanwhile, the patient should remain on aggressive acid suppression, avoid anticoagulant therapies, a nd discontinue all nonsteroidal therapies. /[id number]
--- NOTE | 2017-10-15 09:09 | SOAPPROG ---
SOAP Progress Note Assessment/Plan: Assessment: STATUS POST GASTRIC PERFORATION WITH PERITONITIS / WOUND HEALING WELL / AFEBRILE/ POSITIVE BOWEL SOUNDS AND FLATUS / Plan: ADVANCE DIET TO CLEAR 10/13/17 15:58 10/15/17 09:07 VS STABLE/ HCT STABLE BUT PERSISTENT MELENA/ WOUND OK / ABD SOFT/ NO PATH AVAILABLE/ PLAN EGD TODAY/ MAY NEED SURGERY Objective: Vital Signs Temp Pulse Resp BP Pulse Ox 36.6 C 76 18 140/86 H 96 10/15/17 08:00 10/15/17 08:00 10/15/17 08:00 10/15/17 08:00 10/15/17 08:00 Microbiology 10/08/17 20:15 Gram Stain - Final Peritoneal Fluid - Aspirate 10/08/17 15:10 Blood Culture - Final Blood 10/08/17 14:50 Blood Culture - Final Blood Laboratory Results 10/15/17 08:40 10/15/17 04:10 10/14/17 10/15/17 10/16/17 05:59 05:59 05:59 Intake Total 2176 2376 Output Total 6450 1000 Balance -4274 1376 PT 17.7 SEC (12.0-15.0) H 10/08/17 20:28 INR 1.44 (0.83-1.16) H 10/08/17 20:28 ICD10 Worksheet Patient Problems: Problems Problem Status Onset Abdominal pain in male Acute Chronic obstructive pulmonary disease with acute exacerbation Acute
[2017-10-15] MEDS: FLUTICASONE/SALMETER 250/50MCG DISKUS IH SCH ×2 (09:34→20:47)
--- NOTE | 2017-10-15 09:36 | PCMIDPN ---
Assessment/Plan: Assessment/Plan: 1. Polymicrobial peritonitis secondary to perforated gastric ulcer: - Brief op noted reveal purulence around cecum. s/p repair - Cx with Strep parasanguious and Gemella so far. -fungal cx in progress -Sensitivities on gemella pending -Currently on Vanco, unasyn, micafungin pending final cultures/sensi - WBc noted , creatinine stable -GI pathogen study negative -vanco trough at 5.7 prior to third dose. Checked early given daily dose. Continue at current dosing with f/u trough . - care coordinated with copyist team. 2. Melena - For EGD, possible surgery depending on findings. - GI and surgery following. meds vanco 1.25gm daily-10/12 unasyn 3g q6-10/08 micafungin 100mg daiy- 10/12 Subjective: transfered to ICu after large bloody stool. Continues to have melena. Breathing is stable. mostly dry cough.less coughing today. Denies abd pain. Objective: Vital Signs Temp Pulse Resp BP Pulse Ox 36.6 C 76 18 140/86 H 96 10/15/17 08:00 10/15/17 08:00 10/15/17 08:00 10/15/17 08:00 10/15/17 08:00 Microbiology 10/08/17 20:15 Gram Stain - Final Peritoneal Fluid - Aspirate 10/08/17 15:10 Blood Culture - Final Blood 10/08/17 14:50 Blood Culture - Final Blood Laboratory Results 10/15/17 08:40 10/15/17 04:10 10/14/17 10/15/17 10/16/17 05:59 05:59 05:59 Intake Total 2176 2376 Output Total 6450 1000 Balance -4244 3466 - Physical Exam General Appearance: alert, no apparent distress EENT: other (o2 via nc) Respiratory: coarse breath sounds Cardiac/Chest: regular rate, rhythm Extremities: No swelling Abdomen: normal bowel sounds, non-tender, soft, other (melena), No distended Skin: No erythema ICD10 Worksheet Patient Problems: Problems Problem Status Onset Abdominal pain in male Acute Chronic obstructive pulmonary disease with acute exacerbation Acute
--- NOTE | 2017-10-15 09:57 | SOAPPROG ---
SOAP Progress Note Assessment/Plan: Assessment/plan: 81yo M POD #7 s/p repair of gastric perf Grossly contaminated abdomen - continue IV abx Bloody BM overnight consistent with GI bleed Getting EGD with Dr. Sanchez this am May require OR NPO S: Pain well controlled. No nausea. Continues to have bloody bowel movements this morning O: Laying in bed, comfortable, NAD No increased WOB +BS throughout, soft, nondistended, nontender to palpation, incisions CDI. No rebound or guarding Objective: Vital Signs Temp Pulse Resp BP Pulse Ox 36.6 C 78 43 H 140/86 H 95 10/15/17 09:28 10/15/17 09:35 10/15/17 09:35 10/15/17 09:28 10/15/17 09:35 Microbiology 10/08/17 20:15 Gram Stain - Final Peritoneal Fluid - Aspirate 10/08/17 15:10 Blood Culture - Final Blood 10/08/17 14:50 Blood Culture - Final Blood Laboratory Results 10/15/17 08:40 10/15/17 04:10 10/14/17 10/15/17 10/16/17 05:59 05:59 05:59 Intake Total 2176 2376 Output Total 6450 1000 Balance -4274 1376 PT 17.7 SEC (12.0-15.0) H 10/08/17 20:28 INR 1.44 (0.83-1.16) H 10/08/17 20:28 ICD10 Worksheet Patient Problems: Problems Problem Status Onset Abdominal pain in male Acute Chronic obstructive pulmonary disease with acute exacerbation Acute
[2017-10-15] MEDS ORDERED: LIDOCAINE 2% 100 MG/5 ML SYR ONE (10:55)
[2017-10-15] MEDS ORDERED: PROPOFOL/EMULSION 500 MG/50 ML BOTTLE IV ONE (10:55)
--- NOTE | 2017-10-15 11:06 | PDANEPAE ---
ANE History of Present Illness EGD ANE Past Medical History - Cardiovascular History Hx Hypertension: Yes - Pulmonary History Hx COPD: Yes Hx Oxygen in Use at Home: Yes O2 in Use at Home (L/minute): 3 Hx Sleep Apnea: No Sleep Apnea Screening Result - Last Documented: Positive - Endocrine History Hx Diabetes: No - Neurological & Psychiatric Hx Hx Neurological and Psychiatric Disorders: Yes ANE Review of Systems Review of Systems: worse SOB - Exercise capacity METS (RN): 4 METS ANE Patient History - Allergies Allergies/Adverse Reactions: No Known Allergies Allergy (Verified 10/08/17 12:37) - Home Medications Home medications: home medication list seen and reviewed Home Medications: Fluticasone Nasal [Flonase Nasal Cameron (RX)] 1 sprays NASAL 10/08/17 [Last Taken 10/07/17] Fluticasone/Salmeter 250/50Mcg [Advair 250/50 (*)] 1 puffs IH 10/08/17 [Last Taken 10/07/17] Lisinopril [Zestril 10 mg (*)] 10 mg PO DAILY 10/08/17 [Last Taken 10/07/17] Simvastatin [Zocor] 40 mg PO HS 10/08/17 [Last Taken 10/07/17] predniSONE 20 mg PO DAILY 10/08/17 [Last Taken 10/07/17] - NPO status NPO Status: no food or drink >8 hours NPO Since - Liquids (Date): 10/14/17 NPO Since - Liquids (Time): 22:00 NPO Since - Solids (Date): 10/09/17 NPO Since - Solids (Time): 10:00 - Anes Hx Anes Hx: no prior problems - Smoking Hx Smoking Status: Former smoker - Family Anes Hx Family Anes Hx: none ANE Labs/Vital Signs - Labs Result Diagrams: 10/15/17 08:40 10/15/17 04:10 - Vital Signs Blood Pressure: 141/71 Heart Rate: 68 Respiratory Rate: 20 O2 Sat (%): 97 Height: 177.8 cm Weight: 68.7 kg ANE Physical Exam - Airway Neck exam: FROM Mallampati Score: Class 3 Mouth exam: poor dentition - Pulmonary Pulmonary: reduced air movement - Cardiovascular Cardiovascular: regular rate and rhythym - ASA Status ASA Status: III ANE Anesthesia Plan Total IV Anesthesia: Yes
[2017-10-15] MEDS ORDERED: NALOXONE HCL 0.4 MG/ML INJ IVP PRN (11:21)
[2017-10-15] MEDS ORDERED: DEXAMETHASONE 4 MG/ML VIAL IVP PRN (11:21)
[2017-10-15] MEDS ORDERED: fentaNYL 100 MCG/2 ML INJ IVP PRN (11:21)
[2017-10-15] MEDS ORDERED: MEPERIDINE 25 MG/ML SYR IVP PRN (11:21)
[2017-10-15] MEDS ORDERED: ALBUTEROL 3 ML DEYVIAL IH PRN (11:21)
--- NOTE | 2017-10-15 11:21 | POSTANESTH ---
Post Anesthetic Evaluation Cardiovascular Status: Similar to Pre-Op Cond Respiratory Status: Similar to Pre-op Cond. Level of Consciousness/Mental Status: Can Participate in Eval, Moderately Sleepy Pain Control: Adequate, Prn Tx Ordered Nausea/Vomiting Control: Adequate, Prn Tx Ordered Complications Possibly Related to Anesthesia: None Noted
--- NOTE | 2017-10-15 11:32 | GIREPORT ---
[facility] Surgical Services - Endoscopy Department Patient Name: Isaias Lynne Procedure Date: 10/15/2017 11:00 AM Patient Type: Inpatient Attending MD/ ER Physician: Amanda Sanchez MD Procedure: Upper GI endoscopy Indications: Hematochezia, Melena, Suspected upper gastrointestinal bleeding, Peptic ulcer Providers: Amanda Sanchez MD Medicines: Sedation Administered by an Anesthesia Professional Complications: No immediate complications. Description of Procedure: After obtaining informed consent, the endoscope was passed under direct vision. Throughout the procedure, the patient's blood pressure, pulse, and oxygen saturations were monitored continuously. The Endoscope was intro duced through the mouth, and advanced to the fourth part of duodenum. [facility] er GI endoscopy was accomplished without difficulty. The patient tolerated th e procedure well. Findings: The examined esophagus was normal. The entire examined stomach was normal. One non-bleeding cratered duodenal ulcer with no stigmata of bleeding w as found in the duodenal bulb. The lesion was 7 mm in largest dimension. One non-bleeding cratered duodenal ulcer with no stigmata of bleeding w as found in the second portion of the duodenum. The lesion was >30 mm in largest dimension. Estimated Blood Loss: Estimated blood loss: none. Post Op Diagnosis: - Normal esophagus. - Normal stomach. - Two non-bleeding duodenal ulcers with no stigmata of bleeding. One sm aller in the duodenal bulb. One is "giant" >3-4cm, non obstruction, but defor jacqueline the duodenal sweep. Ulcer is large enough to be difficult to see entire ly in one field of view. No stigmata of bleeding noted. - No specimens collected. Recommendation: - Clear liquid diet. - Use a proton pump inhibitor IV. - Perform an H. pylori serology. - Observe patient's clinical course. - If patient to have recurrent bleeding - recommend IR or surgical intervention. Endoscopic intervention in ulcer of this size, in 2nd por tion of the duodenum, that already has had perforation has low success rate and high perforation risk. Attending Participation: I personally performed the entire procedure. Amanda Sanchez MD Amanda Sanchez MD 10/15/2017 11:31:33 AM This report has been signed electronicallyDaus Laura MD Number of Addenda: 0 Note Initiated On: 10/15/2017 11:00 AM [email or web address]
[2017-10-15] MEDS: VANCOMYCIN 1.25 GM in D5W 250 ML IV SCH (12:11)
--- NOTE | 2017-10-15 16:01 | PDINTPN ---
Foot Miter Operator Progress Note Assessment/Plan: Assessment/plan: 81 M admitted 10/08/17 with perforated requiring emergent laparotomy in setting of O2 dependent COPD and chronic steroids. He was improving postoperatively until he had sudden onset of significant melena last PM requiring return to ICU. EGD 10/15 revealed giant DU. * GIB 2/2 DU. As per GI notes, too big for intervention with EGD and high risk for perforation. If remains stable, NTD, if bleeds trial of IR versus surgery. Dr. Lawrence following * COPD- FEV1 48% in 02/2017 and was actively attempting to reduce chronic steroid use from 10/20 mg qod to 10/day or more 2/2 LE weakness. I suspect this is a factor in his ulcers as well. His current regimen of Advair, duoneb, flonase, and mucomyst are close to baseline. Will reduce solumedrol to 10 qd * O2- 2/2 COPD. Continue to monitor and titrate as tolerated. Previously refused sleep study. * Peritonitis- remains on micafungin, vanco, unasyn. Subjective: return to ICU after melena noted last pm Objective: Vital Signs Temp Pulse Resp BP Pulse Ox 36.5 C 89 20 142/76 H 91 L 10/15/17 11:51 10/15/17 14:00 10/15/17 14:00 10/15/17 14:00 10/15/17 14:00 Microbiology 10/08/17 20:15 Gram Stain - Final Peritoneal Fluid - Aspirate Laboratory Results 10/15/17 08:40 10/15/17 04:10 10/14/17 10/15/17 10/16/17 05:59 05:59 05:59 Intake Total 2176 2376 200 Output Total 6450 1000 0 Balance -4274 1376 200 PT 17.7 SEC (12.0-15.0) H 10/08/17 20:28 INR 1.44 (0.83-1.16) H 10/08/17 20:28 Physical Exam - Physical Exam General Appearance: alert, no apparent distress EENT: PERRL/EOMI Neck: supple Respiratory: lungs clear, normal breath sounds, decreased breath sounds, No respiratory distress, No accessory muscle use Cardiac/Chest: regular rate, rhythm, No edema Abdomen: non-tender, soft, No distended Skin: normal color, warm/dry, No cyanosis Lymphatic: no adenopathy Extremities: No pedal edema Neuro/Psych: alert, normal mood/affect, oriented x 3 ICD10 Worksheet Patient Problems: Problems Problem Status Onset Abdominal pain in male Acute Chronic obstructive pulmonary disease with acute exacerbation Acute
--- NOTE | 2017-10-15 16:14 | ASMTCMCOM ---
CM Note CM Note Notes: GIB, COPD, peritonitis, returned to ICU after bleed last night[place] SNF vs In-pt Rehab. Need an Order for in-pt Rehab. Date Signed: 10/15/2017 04:14 PM Electronically Signed By:Neda Shi LCSW
--- NOTE | 2017-10-15 18:33 | HOSPPROG ---
Hospitalist Progress Note Assessment/Plan: # gastric ulcer perforation with peritonitis s/p repair POD #7- strep parasanguinous and gamella from operative cultures Patient transferred to ICU overnight due to large volume bloody stool - NPO for EGD - post-op management per surgery - ileus resolved - cont vanc, unasyn, fluconazole per ID - IV protonix, change to po # ABLA post-op - hgb 6.4 after blood loss last night - received 3 UPRBC urgently hgb 10 post transfusion # acute hypoxic resp failure - required intubation, extubated 1 week ago, d/t possible pna, vol overload, underlying COPD, atelectasis - on home O2 - cont steroids and inhaled meds # resolving pulm edema - net neg >5L. CXR (personally reviewed and interpreted ) small effusions/atelectasis - no PTX - d/c IV lasix as no notable edema # COPD - on home O2 (4-5 LPM) and uses chronic prednisone 20 mg daily. No appreciable wheezing - wean IV solumedrol - cont qid duonebs, advair, mucomyst # chronic steroid use and immunosuppression - wean steroids as above # hx TIA - holding plavix post-op; start in a few days # hyperNa - resolved with free water repletion -d/c D5W # FEN - tolerating clears, adat # DVT PPLX - Lovenox # debilitation - PT/OT; will need SNF I have discussed the case with Dr. Lofton - will keep pt in ICU for close monitoring Subjective: denies current pain Objective: Vital Signs Temp Pulse Resp BP Pulse Ox 36.5 C 80 16 136/64 H 94 10/15/17 11:51 10/15/17 18:00 10/15/17 18:00 10/15/17 18:00 10/15/17 18:00 Microbiology 10/08/17 20:15 Gram Stain - Final Peritoneal Fluid - Aspirate Laboratory Results 10/15/17 08:40 10/15/17 04:10 10/14/17 10/15/17 10/16/17 05:59 05:59 05:59 Intake Total 2176 2376 1483 Output Total 6450 1000 750 Balance -4274 1376 733 PT 17.7 SEC (12.0-15.0) H 10/08/17 20:28 INR 1.44 (0.83-1.16) H 10/08/17 20:28 - Physical Exam Constitutional: no apparent distress Eyes: anicteric sclera Ears, Nose, Mouth, Throat: moist mucous membranes Cardiovascular: regular rate and rhythym Respiratory: no respiratory distress, no rales or rhonchi Gastrointestinal: normoactive bowel sounds, No tenderness Genitourinary: no bladder fullness Skin: warm Musculoskeletal: No asymmetric calves Neurologic: AAOx3 Psychiatric: interacting appropriately Lymph, Heme, Immunologic: no cervical LAD ICD10 Worksheet Patient Problems: Problems Problem Status Onset Abdominal pain in male Acute Chronic obstructive pulmonary disease with acute exacerbation Acute
[2017-10-15] MEDS ORDERED: ERYTHROMYCIN LACTOBIONATE 250 MG in NS 100 ML IV ONE (20:56)
[2017-10-15] MEDS: FLUTICASONE NASAL 120 SPRAYS/16 GM MDI NS SCH (21:28)
[2017-10-15] MEDS: ATORVASTATIN CALCIUM 20 MG TAB PO SCH (21:28)
[2017-10-16] MEDS: AMPICILLIN/SULBACTAM 3 GM in STERILE WATER INJ 8 ML IV SCH ×4 (04:36→23:25)
[2017-10-16] MEDS: NS 1,000 ML IV SCH (04:57)
[2017-10-16] MEDS: IPRATROPIUM/ALBUTEROL 3 ML DEYVIAL IH SCH ×4 (05:27→20:57)
--- NOTE | 2017-10-16 08:24 | SOAPPROG ---
[facility]OLA Progress Note Assessment/Plan: Assessment/Plan: 1. GI Bleed - 1 giant DU and 1 small DU - both clean based without obvious endoscopically treatable lesions - H/H stable fortunately - H.Pylori neg - ulcers likely from NSAIDs - recommend BID PPI x 12 weeks, then QD thereafter - ok to advance diet - if has rebleeding, would consider IR vs surgery management - repeat EGD intervention unlikely to be definitive in setting of large/perf'd ulcer - will sign off, call with questions 10/16/17 08:20 Subjective: CC: f/u ulcer S: feeling better appetite returning still feeling weak wants to go home no fever no chills no vomiting still with melena Objective: Vital Signs Temp Pulse Resp BP Pulse Ox 37.0 C 84 16 151/71 H 97 10/16/17 04:00 10/16/17 06:00 10/16/17 06:00 10/16/17 06:00 10/16/17 06:00 Microbiology 10/08/17 20:15 Gram Stain - Final Peritoneal Fluid - Aspirate Laboratory Results 10/15/17 08:40 10/16/17 04:40 10/15/17 10/16/17 10/17/17 05:59 05:59 05:59 Intake Total 2376 2960 Output Total 1000 1700 Balance 1376 1260 PT 17.7 SEC (12.0-15.0) H 10/08/17 20:28 INR 1.44 (0.83-1.16) H 10/08/17 20:28 Physical Exam - Physical Exam General Appearance: WD/WN, alert, no apparent distress EENT: PERRL/EOMI, normal ENT inspection Neck: non-tender, full range of motion Respiratory: chest non-tender, lungs clear Cardiac/Chest: normal peripheral pulses, No edema Abdomen: normal bowel sounds, non-tender, soft Skin: normal color Extremities: normal range of motion Neuro/Psych: no motor/sensory deficits ICD10 Worksheet Patient Problems: Problems Problem Status Onset Abdominal pain in male Acute Chronic obstructive pulmonary disease with acute exacerbation Acute
[2017-10-16] MEDS: methylPREDNISolone SOD SUCC 40 MG/ML VIAL IVP SCH (09:33)
[2017-10-16] MEDS: PANTOPRAZOLE SODIUM 40 MG VIAL IVP SCH ×2 (09:33→20:56)
--- NOTE | 2017-10-16 09:58 | SOAPPROG ---
SOAP Progress Note Assessment/Plan: Assessment: s/p repair of gastric perf Grossly contaminated abdomen - continue ABX H pylori pending EGD with large gastric and duodenal ulcer. BID PPI. If rebleeds, will dicuss with IR Regular diet Med surg S: No bloody stools overnight O: INcisions cdi - some mild ecchymosis. BS present Plan: 10/10/17 21:43 10/16/17 09:57 Objective: Vital Signs Temp Pulse Resp BP Pulse Ox 37.0 C 77 16 157/78 H 99 10/16/17 04:00 10/16/17 08:00 10/16/17 08:00 10/16/17 08:00 10/16/17 08:00 Microbiology 10/08/17 20:15 Gram Stain - Final Peritoneal Fluid - Aspirate Laboratory Results 10/16/17 09:40 10/16/17 04:40 10/15/17 10/16/17 10/17/17 05:59 05:59 05:59 Intake Total 2376 2960 Output Total 1000 1700 Balance 1376 1260 PT 17.7 SEC (12.0-15.0) H 10/08/17 20:28 INR 1.44 (0.83-1.16) H 10/08/17 20:28 ICD10 Worksheet Patient Problems: Problems Problem Status Onset Abdominal pain in male Acute Chronic obstructive pulmonary disease with acute exacerbation Acute
[2017-10-16] MEDS: MICAFUNGIN NA 100 MG in NS 100 ML IV SCH (10:10)
--- NOTE | 2017-10-16 10:32 | PCMIDPN ---
Assessment/Plan: # sepsis and gross intraperitoneal contamination with resultant polymicrobial peritonitis following a gastric ulcer perforation. Tm 37. Ulcers due to NSAIDS , H pylori negative. Belly soft today with +BS. --Unasyn, micafungin (empiric in setting of UGI bleed), vancomycin (for possible gamella Resistance) --increase dose vancomycin based on T, recheck trough Saturday # leukocytosis: Difficult to assess in the setting of ongoing intermittent GI bleeding meds Unasyn 3gm IV q6, #2 vancomycin 1.25gm IV q 24h, #4, vanco T = 5.7 micafungin 100mg iV daily, #5 Microbiology 10/08/17 15:10 Blood Cx (2) neg 10/08/17 20:15 Peritoneal Fluid - Aspirate Anaerobic Culture - Preliminary Streptococcus Parasanguinis Gemella Species Subjective: patient upset that food taken away for coughing while eating, waiting for speech therapy worried about being able to take care of him when he goes home Objective: Vital Signs Temp Pulse Resp BP Pulse Ox 37.0 C 77 16 157/78 H 99 10/16/17 04:00 10/16/17 08:00 10/16/17 08:00 10/16/17 08:00 10/16/17 08:00 Microbiology 10/08/17 20:15 Gram Stain - Final Peritoneal Fluid - Aspirate Laboratory Results 10/16/17 09:40 10/16/17 04:40 10/15/17 10/16/17 10/17/17 05:59 05:59 05:59 Intake Total 2376 2960 Output Total 1000 1700 Balance 1376 1260 - Physical Exam General Appearance: alert, no apparent distress, obese EENT: pale conjunctiva, poor dentition Respiratory: other (decreased bs bases), No accessory muscle use Cardiac/Chest: regular rate, rhythm Extremities: No pedal edema Abdomen: normal bowel sounds, non-tender, soft, other (upper abdominal incision glued, looks great! no erythema) Skin: No rash Neuro/Psych: alert, normal mood/affect, oriented x 3 - Line/s other Lines: other (R IJ C/d/i), No drainage, No erythema - Time Spent With Patient Time Spent with Patient: greater than 35 minutes (care reviewed with patient and at bedside) Time Spent with Patient: Greater than 35 minutes spent on this patients care, greater than 50% of time spent counseling, educating, and coordinating care regarding the above mentioned plan. ICD10 Worksheet Patient Problems: Problems Problem Status Onset Abdominal pain in male Acute Chronic obstructive pulmonary disease with acute exacerbation Acute
[2017-10-16] MEDS: FLUTICASONE/SALMETER 250/50MCG DISKUS IH SCH ×2 (11:33→20:57)
[2017-10-16] MEDS: VANCOMYCIN 750 MG in D5W 150 ML IV SCH ×2 (11:55→23:38)
[2017-10-16] MEDS: VANCOMYCIN 1.25 GM in D5W 250 ML IV SCH (12:08)
--- NOTE | 2017-10-16 14:51 | PDINTPN ---
Asbestos Shingle Inspector Progress Note Assessment/Plan: Assessment/plan: 81 M admitted 10/08/17 with perforated requiring emergent laparotomy in setting of O2 dependent COPD and chronic steroids. He was improving postoperatively until he had sudden onset of significant melena last PM requiring return to ICU. EGD 10/15 revealed giant DU. * GIB 2/2 DU. As per GI notes, too big for intervention with EGD and high risk for perforation. No further obvious bleeding * COPD- FEV1 48% in 02/2017 and was actively attempting to reduce chronic steroid use from 10/20 mg qod to 10/day or more 2/2 LE weakness. I suspect this is a factor in his ulcers as well. His current regimen of Advair, duoneb, flonase, and mucomyst are close to baseline. Reduced solumedrol to 10 qd 10/15. Eventually needs to taper off * O2- 2/2 COPD. Continue to monitor and titrate as tolerated. Previously refused sleep study. * Peritonitis- remains on micafungin, vanco, unasyn. 10/16/17 14:49 Subjective: feels well without complaints Objective: Vital Signs Temp Pulse Resp BP Pulse Ox 37.0 C 74 20 157/78 H 96 10/16/17 04:00 10/16/17 11:36 10/16/17 11:36 10/16/17 08:00 10/16/17 11:36 Microbiology 10/08/17 20:15 Gram Stain - Final Peritoneal Fluid - Aspirate Laboratory Results 10/16/17 09:40 10/16/17 04:40 10/15/17 10/16/17 10/17/17 05:59 05:59 05:59 Intake Total 2376 2960 Output Total 1000 1700 Balance 1376 1260 PT 17.7 SEC (12.0-15.0) H 10/08/17 20:28 INR 1.44 (0.83-1.16) H 10/08/17 20:28 Physical Exam - Physical Exam General Appearance: WD/WN, alert, no apparent distress EENT: PERRL/EOMI Neck: supple Respiratory: lungs clear, normal breath sounds, No respiratory distress, No accessory muscle use Cardiac/Chest: regular rate, rhythm, No edema Abdomen: soft, No distended Skin: normal color, warm/dry, No cyanosis Lymphatic: no adenopathy Extremities: No pedal edema Neuro/Psych: alert, normal mood/affect, oriented x 3 ICD10 Worksheet Patient Problems: Problems Problem Status Onset Abdominal pain in male Acute Chronic obstructive pulmonary disease with acute exacerbation Acute
--- NOTE | 2017-10-16 15:35 | HOSPPROG ---
Hospitalist Progress Note Assessment/Plan: # gastric ulcer perforation with peritonitis s/p repair POD #8- strep parasanguinous and gamella from operative cultures Patient transferred to ICU - due to large volume bloody stool EGD (reviewed) multiple duodenal ulcerations - advancing diet - post-op management per surgery - ileus resolved - cont vanc, unasyn, fluconazole per ID - IV protonix BID # ABLA post-op - hgb 6.4 -> 10.6 after 3 UPRBC urgently - monitor daily # Acute hypoxic resp failure - required intubation, extubated 1 week ago, d/t possible pna, vol overload, underlying COPD, atelectasis - on home O2 - cont steroids (being weaned) and inhaled meds # resolving pulm edema - net neg >5L. CXR (personally reviewed and interpreted ) small effusions/atelectasis - no PTX - d/c IV lasix as no notable edema # COPD - on home O2 (4-5 LPM) and uses chronic prednisone 20 mg daily. No appreciable wheezing - cont wean IV solumedrol - cont qid duonebs, advair, mucomyst # chronic steroid use and immunosuppression - wean steroids as above # hx TIA - holding plavix post-op; start in a few days # hyperNa - resolved with free water repletion -d/c D5W # FEN - tolerating clears, adat # DVT PPLX - Lovenox # debilitation - PT/OT; will need SNF I have discussed the case with Dr. Lofton - continue to closely monitor for bleeding and pulmonary function Subjective: abdominal pain Objective: Vital Signs Temp Pulse Resp BP Pulse Ox 37.0 C 74 20 157/78 H 96 10/16/17 04:00 10/16/17 11:36 10/16/17 11:36 10/16/17 08:00 10/16/17 11:36 Microbiology 10/08/17 20:15 Gram Stain - Final Peritoneal Fluid - Aspirate Laboratory Results 10/16/17 09:40 10/16/17 04:40 10/15/17 10/16/17 10/17/17 05:59 05:59 05:59 Intake Total 2376 2960 Output Total 1000 1700 Balance 1376 1260 PT 17.7 SEC (12.0-15.0) H 10/08/17 20:28 INR 1.44 (0.83-1.16) H 10/08/17 20:28 - Physical Exam Constitutional: no apparent distress Eyes: anicteric sclera Ears, Nose, Mouth, Throat: moist mucous membranes Cardiovascular: regular rate and rhythym Respiratory: no respiratory distress, no rales or rhonchi, No expiratory wheeze Gastrointestinal: normoactive bowel sounds Genitourinary: no bladder fullness Skin: warm Musculoskeletal: No asymmetric calves Psychiatric: interacting appropriately Lymph, Heme, Immunologic: no cervical LAD ICD10 Worksheet Patient Problems: Problems Problem Status Onset Abdominal pain in male Acute Chronic obstructive pulmonary disease with acute exacerbation Acute
[2017-10-16] MEDS: ATORVASTATIN CALCIUM 20 MG TAB PO SCH (20:55)
[2017-10-16] MEDS: FLUTICASONE NASAL 120 SPRAYS/16 GM MDI NS SCH (22:01)
[2017-10-17] MEDS: IPRATROPIUM/ALBUTEROL 3 ML DEYVIAL IH SCH ×4 (05:16→19:59)
[2017-10-17] MEDS: AMPICILLIN/SULBACTAM 3 GM in STERILE WATER INJ 8 ML IV SCH ×4 (05:47→23:49)
[2017-10-17] MEDS: FLUTICASONE/SALMETER 250/50MCG DISKUS IH SCH ×2 (09:39→19:59)
[2017-10-17] MEDS: LISINOPRIL 10 MG TAB PO SCH (09:39)
[2017-10-17] MEDS: methylPREDNISolone SOD SUCC 40 MG/ML VIAL IVP SCH (09:40)
[2017-10-17] MEDS: PANTOPRAZOLE SODIUM 40 MG VIAL IVP SCH (09:42)
[2017-10-17] MEDS: MICAFUNGIN NA 100 MG in NS 100 ML IV SCH (09:43)
--- NOTE | 2017-10-17 10:35 | SOAPPROG ---
SOAP Progress Note Assessment/Plan: Assessment/Plan: s/p repair of gastric perforation Grossly contaminated abdomen - continue ABX per ID Large gastric and duodenal ulcer - BID PPI, H pylori negative H&H dropped overnight - re-draw at 1200, if it drops lower may need another transfusion of PRBCs, will discuss with IR for intervention S: No bloody stools overnight, stools are dark. Speech therapy came yesterday and he is tolerating a regular diet. He continues to have BMs and flatus. He reports his pain is controlled he just feels fatigued. O: General: Patient is laying in bed with the lights off, he wakes easily. Alert and oriented in no acute distress. Resp: nasal cannula in place at 4L Abdomen: BS present, abdomen soft and nontender to palpation, nondistended Skin: incisions cdi, some mild ecchymosis Objective: Vital Signs Temp Pulse Resp BP Pulse Ox 36.9 C 73 17 134/83 H 92 10/17/17 08:29 10/17/17 08:29 10/17/17 08:29 10/17/17 09:39 10/17/17 08:29 Microbiology 10/08/17 20:15 Gram Stain - Final Peritoneal Fluid - Aspirate Laboratory Results 10/17/17 05:50 10/17/17 05:50 10/16/17 10/17/17 10/18/17 05:59 05:59 05:59 Intake Total 2960 4630 Output Total 1700 750 Balance 1260 3880 PT 17.7 SEC (12.0-15.0) H 10/08/17 20:28 INR 1.44 (0.83-1.16) H 10/08/17 20:28 ICD10 Worksheet Patient Problems: Problems Problem Status Onset Abdominal pain in male Acute Chronic obstructive pulmonary disease with acute exacerbation Acute
[2017-10-17] MEDS: VANCOMYCIN 750 MG in D5W 150 ML IV SCH (11:34)
[2017-10-17] MEDS ORDERED: VANCOMYCIN 750 MG in NS 150 ML IV SCH (12:00)
[2017-10-17] MEDS: NS 1,000 ML IV SCH (12:20)
--- NOTE | 2017-10-17 16:50 | PCMIDPN ---
Assessment/Plan: Assessment: Peritonitis secondary to Streptococcus and gemella spp. secondary to perforated gastric ulcer. Patient is also covered with micafungin for empiric fungal coverage. Gradually improving. Large duodenal ulcer noted but not intervened after large GI bleed. Still awaiting gemella sensitivities from [place] labs. Plan: 1. Continue coverage with vancomycin, Unasyn and micafungin. 2. Follow clinical course. 3. Follow up on sensitivity panels. 10/17/17 17:28 Subjective: Patient is resting in his hospital bed. No significant new complaints. No fevers or chills. Objective: Vancomycin # 1 Unasyn # 3 Micafungin # 6 Vital Signs Temp Pulse Resp BP Pulse Ox 36.8 C 79 12 153/82 H 88 L 10/17/17 14:54 10/17/17 16:00 10/17/17 16:00 10/17/17 14:54 10/17/17 16:00 Microbiology 10/08/17 20:15 Gram Stain - Final Peritoneal Fluid - Aspirate Laboratory Results 10/17/17 12:15 10/17/17 05:50 10/16/17 10/17/17 10/18/17 05:59 05:59 05:59 Intake Total 2960 4630 808 Output Total 1150 234 2030 Balance 1260 3880 -292 - Physical Exam General Appearance: WD/WN, alert, no apparent distress, non-toxic Respiratory: lungs clear, normal breath sounds, No respiratory distress Cardiac/Chest: regular rate, rhythm, No tachycardia Abdomen: non-tender, soft Skin: normal color, warm/dry, No rash Neuro/Psych: alert, normal mood/affect, oriented x 3 ICD10 Worksheet Patient Problems: Problems Problem Status Onset Abdominal pain in male Acute Chronic obstructive pulmonary disease with acute exacerbation Acute
--- NOTE | 2017-10-17 17:28 | HOSPPROG ---
Hospitalist Progress Note Assessment/Plan: # gastric ulcer perforation with peritonitis s/p repair POD #9- strep parasanguinous and gamella from operative cultures Patient transferred to ICU - due to large volume bloody stool with EGD EGD (reviewed) multiple duodenal ulcerations - advancing diet - post-op management per surgery - ileus resolved - cont vanc, unasyn, fluconazole per ID - cont protonix BID # ABLA post-op - hgb 6.4 -> 10.6 after 3 UPRBC urgently with acute bleed - remains 9.6 today - monitor daily # Acute hypoxic resp failure - required intubation, extubated 1 week ago, d/t possible pna, vol overload, underlying COPD, atelectasis CXR - small effusions/atelectasis - oxygen saturations 90% on 3L TELE (personally reviewed and interpreted) sinus in 80's - on home O2 - cont steroids (being weaned) and inhaled meds # COPD - on home O2 (4-5 LPM) and uses chronic prednisone 20 mg daily. No appreciable wheezing - cont wean IV solumedrol - cont qid duonebs, advair, mucomyst # chronic steroid use and immunosuppression - wean steroids as above # hx TIA - holding plavix post-op; start in a few days # hyperNa - resolved with free water repletion -d/c D5W # FEN - tolerating clears, adat # DVT PPLX - Lovenox # debilitation - PT/OT; will need SNF I have discussed the case with Dr. Lofton - progressing post-operatively - stable for med/surg Subjective: tolerated breakfast Objective: Vital Signs Temp Pulse Resp BP Pulse Ox 36.8 C 79 12 153/82 H 88 L 10/17/17 14:54 10/17/17 16:00 10/17/17 16:00 10/17/17 14:54 10/17/17 16:00 Microbiology 10/08/17 20:15 Gram Stain - Final Peritoneal Fluid - Aspirate Laboratory Results 10/17/17 12:15 10/17/17 05:50 10/16/17 10/17/17 10/18/17 05:59 05:59 05:59 Intake Total 2960 4630 808 Output Total 5227 396 9209 Balance 1260 3880 -292 PT 17.7 SEC (12.0-15.0) H 10/08/17 20:28 INR 1.44 (0.83-1.16) H 10/08/17 20:28 - Physical Exam Constitutional: appears nourished Eyes: anicteric sclera Ears, Nose, Mouth, Throat: moist mucous membranes Cardiovascular: regular rate and rhythym Respiratory: no respiratory distress, reduced air movement, No expiratory wheeze Gastrointestinal: normoactive bowel sounds Genitourinary: no bladder fullness Skin: warm Musculoskeletal: No asymmetric calves Neurologic: AAOx3 Psychiatric: interacting appropriately Lymph, Heme, Immunologic: no cervical LAD ICD10 Worksheet Patient Problems: Problems Problem Status Onset Abdominal pain in male Acute Chronic obstructive pulmonary disease with acute exacerbation Acute
[2017-10-17] MEDS: PANTOPRAZOLE SODIUM 40 MG TAB PO SCH (18:15)
[2017-10-17] MEDS: ATORVASTATIN CALCIUM 20 MG TAB PO SCH (22:02)
[2017-10-17] MEDS: VANCOMYCIN 750 MG in NS 150 ML IV SCH (23:51)
[2017-10-18] MEDS: FLUTICASONE NASAL 120 SPRAYS/16 GM MDI NS SCH ×2 (01:49→21:35)
[2017-10-18] MEDS: NS 1,000 ML IV SCH (05:53)
[2017-10-18] MEDS: AMPICILLIN/SULBACTAM 3 GM in STERILE WATER INJ 8 ML IV SCH ×4 (05:53→22:14)
[2017-10-18] MEDS: IPRATROPIUM/ALBUTEROL 3 ML DEYVIAL IH SCH ×4 (06:17→20:43)
[2017-10-18] MEDS: FLUTICASONE/SALMETER 250/50MCG DISKUS IH SCH ×2 (06:18→20:45)
[2017-10-18] MEDS: MICAFUNGIN NA 100 MG in NS 100 ML IV SCH (09:54)
[2017-10-18] MEDS: PANTOPRAZOLE SODIUM 40 MG TAB PO SCH ×2 (09:56→17:50)
[2017-10-18] MEDS: methylPREDNISolone SOD SUCC 40 MG/ML VIAL IVP SCH (09:56)
[2017-10-18] MEDS: LISINOPRIL 10 MG TAB PO SCH (09:59)
[2017-10-18] MEDS: VANCOMYCIN 750 MG in NS 150 ML IV SCH ×2 (11:32→22:19)
--- NOTE | 2017-10-18 13:43 | PCMIDPN ---
Assessment/Plan: # sepsis and gross intraperitoneal contamination with resultant polymicrobial peritonitis following a gastric ulcer perforation. Tm 36.9. Ulcers due to NSAIDS, H pylori negative. Belly continues to be soft today with +BS. Incision healing well --Unasyn, step down micafungin to fluconazole PO for empiric in setting of UGI perf, vancomycin (for possible gamella Resistance, awaiting sensi from [place]) --repeat vanco T okay on 750mg IV q12 --duration and modality of antibiotics to be determined # leukocytosis: generally improving meds Unasyn 3gm IV q6, #4 vancomycin 750mg q12, #6 micafungin 100mg iV daily, #7 Microbiology 10/08/17 15:10 Blood Cx (2) neg 10/08/17 20:15 Peritoneal Fluid - Aspirate Anaerobic Culture - Preliminary Streptococcus Parasanguinis Gemella Species Subjective: minimal abdominal pain feeling better Objective: Vital Signs Temp Pulse Resp BP Pulse Ox 36.2 C 76 17 125/64 H 97 10/18/17 12:15 10/18/17 12:15 10/18/17 12:15 10/18/17 12:15 10/18/17 12:15 Microbiology 10/08/17 20:15 Gram Stain - Final Peritoneal Fluid - Aspirate Laboratory Results 10/18/17 04:15 10/17/17 05:50 10/17/17 10/18/17 10/19/17 05:59 05:59 05:59 Intake Total 4630 2173 Output Total 750 2250 300 Balance 3880 -77 -300 - Physical Exam General Appearance: alert, no apparent distress Respiratory: other (decreased BS), No accessory muscle use Cardiac/Chest: regular rate, rhythm Extremities: No pedal edema Abdomen: non-tender, soft, distended (very slight), other (upper abdominal midline incision with glue - no erythema or drainage) Skin: pallor, No rash Neuro/Psych: alert, normal mood/affect, oriented x 3 - Line/s other Lines: other (R IJ c/d/i), No drainage, No erythema - Time Spent With Patient Time Spent with Patient: greater than 35 minutes (care coordinated with Dr. Mao) Time Spent with Patient: Greater than 35 minutes spent on this patients care, greater than 50% of time spent counseling, educating, and coordinating care regarding the above mentioned plan. ICD10 Worksheet Patient Problems: Problems Problem Status Onset Abdominal pain in male Acute Chronic obstructive pulmonary disease with acute exacerbation Acute
--- NOTE | 2017-10-18 14:36 | SOAPPROG ---
SOAP Progress Note Assessment/Plan: Assessment/Plan: s/p repair of gastric perforation Remove goff catheter H&H still low but consistent, continue to monitor daily Discussed earliest D/C to a rehab facility would be Saturday depending on Plavix per Hospitalist Grossly contaminated abdomen - continue ABX per ID Large gastric and duodenal ulcer - BID PPI S: Patient reports feeling about the same today, his pain is controlled but he continues to feel fatigued, patient expresses strong desire to go home No stools since yesterday, + flatus O: General: Patient is laying in bed with the lights off, he wakes to voice. Alert and oriented in no acute distress. Resp: nasal cannula in place at 4L Abdomen: BS present, abdomen soft and nontender to palpation, nondistended Skin: incisions cdi, glue in place 10/18/17 14:29 Objective: Vital Signs Temp Pulse Resp BP Pulse Ox 36.2 C 76 17 125/64 H 97 10/18/17 12:15 10/18/17 12:15 10/18/17 12:15 10/18/17 12:15 10/18/17 12:15 Microbiology 10/08/17 20:15 Gram Stain - Final Peritoneal Fluid - Aspirate Laboratory Results 10/18/17 04:15 10/17/17 05:50 10/17/17 10/18/17 10/19/17 05:59 05:59 05:59 Intake Total 4630 2173 Output Total 750 2250 300 Balance 3880 -77 -300 PT 17.7 SEC (12.0-15.0) H 10/08/17 20:28 INR 1.44 (0.83-1.16) H 10/08/17 20:28 ICD10 Worksheet Patient Problems: Problems Problem Status Onset Abdominal pain in male Acute Chronic obstructive pulmonary disease with acute exacerbation Acute
--- NOTE | 2017-10-18 17:03 | ASMTCMCOM ---
CM Note CM Note Notes: 10/18/2017 Case Management Note Met w/pt to discuss PT recommendation for SNF rehab. Pt in agreement. Pt lives in [facility] and wishes to stay in [place]. After discussing options pt requested referrals to [facility] and [facility]. Faxed referrals. Case Management d/c poc: to SNF pending auth and acceptance. Case Management to follow. Date Signed: 10/18/2017 05:02 PM Electronically Signed By:Floresita Vela RN
--- NOTE | 2017-10-18 18:36 | HOSPPROG ---
Hospitalist Progress Note Assessment/Plan: Assessment: 81-year-old male presenting with acute perforated gastric ulcer and acute hypoxic respiratory failure and suspected peritonitis Plan: # Gastric ulcer perforation with peritonitis s/p repair POD #10 - strep parasanguinous and gamella from operative cultures - 2/2 multiple duodenal ulcerations - advanced diet - cont vanc, unasyn, fluconazole per ID - cont protonix BID # ABLA post-op. S/p 3 UPRBC - monitor Hgb daily # Acute on chronic hypoxic resp failure. Present on admission and not related to his surgery, required intubation - currently 5-9LPM - cont steroids (being weaned) and inhaled meds # COPD w/ chronic immunosuppression. Uses chronic prednisone 20 mg daily - cont qid duonebs, advair, mucomyst - cont steroid wean to home dosage # hx TIA. Plan to restart plavix once d/w surg # HyperNatremia. Resolved with free water repletion # Acute atelectasis. Right lower lobe on CXR (personally interpreted), incentive spirometer # Postoperative ileus. Resolved Diet. As cammie Prophylaxis. High risk patient, Lovenox 40 Code. Full Disposition. Anticipated discharge uncertain this time, likely to require SNF. High-level medical complexity, high risk of worsening morbidity and/or mortality , secondary to the issues as outlined above. Subjective: patient w/o pain, working w/ therapies Objective: Vital Signs Temp Pulse Resp BP Pulse Ox 36.7 C 91 14 127/64 H 96 10/18/17 16:39 10/18/17 16:39 10/18/17 16:39 10/18/17 16:39 10/18/17 16:39 Microbiology 10/08/17 20:15 Gram Stain - Final Peritoneal Fluid - Aspirate Laboratory Results 10/18/17 04:15 10/17/17 05:50 10/17/17 10/18/17 10/19/17 05:59 05:59 05:59 Intake Total 4630 2173 Output Total 750 2250 1250 Balance 3880 -77 -1250 PT 17.7 SEC (12.0-15.0) H 10/08/17 20:28 INR 1.44 (0.83-1.16) H 10/08/17 20:28 - Physical Exam Constitutional: no apparent distress, not in pain, chronically ill appearing, other (aged appearing), No uncomfortable Cardiovascular: regular rate and rhythym, no murmur, rub, or gallop, No edema Respiratory: reduced air movement (on exp bilat), No expiratory wheeze, No inspiratory crackles, No bronchial breath sounds, No respiratory distress Gastrointestinal: normoactive bowel sounds, distension (mild), No tenderness, No guarding Genitourinary: other (condom cath) Skin: other (no erythema/induration/tendernes/necrosis around surg sites) Neurologic: other (AAOx2 (person, place)), No facial droop Psychiatric: not anxious, thought process linear, flat affect, No agitated ICD10 Worksheet Patient Problems: Problems Problem Status Onset Chronic obstructive pulmonary disease with acute exacerbation Acute Abdominal pain in male Acute
[2017-10-18] MEDS: ATORVASTATIN CALCIUM 20 MG TAB PO SCH (21:34)
[2017-10-18] MEDS: ACETAMINOPHEN 325 MG TAB PO PRN (21:41)
[2017-10-19] MEDS: AMPICILLIN/SULBACTAM 3 GM in STERILE WATER INJ 8 ML IV SCH ×4 (04:35→23:39)
[2017-10-19] MEDS: IPRATROPIUM/ALBUTEROL 3 ML DEYVIAL IH SCH ×4 (05:25→21:59)
--- NOTE | 2017-10-19 10:28 | SOAPPROG ---
SOAP Progress Note Assessment/Plan: Assessment/Plan: s/p repair of gastric perforation, large gastric and duodenal ulcers Urinating well without catheter, mostly using bedside urinal H&H still low but consistent Will discuss Plavix with hospitalist, if TIA risk is high need to re-start Plavix or Asa and monitor in the hospital, if TIA risk is low then hold off to give ulcers time to heal before re-starting. Otherwise D/C to SNF when medically stable. Abx per ID Large gastric and duodenal ulcer - BID PPI S: Patient is feeling like he has some increased energy today. His pain is controlled and he has no concerns. O: General: Patient is laying in bed with the lights off, he wakes to voice. Alert and oriented in no acute distress. Resp: nasal cannula in place at 4L Abdomen: BS present, abdomen soft and nontender to palpation, nondistended Skin: incisions cdi, 10/19/17 10:43 Objective: Vital Signs Temp Pulse Resp BP Pulse Ox 36.6 C 85 18 116/71 94 10/19/17 10:12 10/19/17 10:12 10/19/17 10:12 10/19/17 10:12 10/19/17 10:12 Microbiology 10/08/17 20:15 Gram Stain - Final Peritoneal Fluid - Aspirate Laboratory Results 10/18/17 04:15 10/17/17 05:50 10/18/17 10/19/17 10/20/17 05:59 05:59 05:59 Intake Total 2173 2581 Output Total 2250 1850 Balance -77 731 PT 17.7 SEC (12.0-15.0) H 10/08/17 20:28 INR 1.44 (0.83-1.16) H 10/08/17 20:28 ICD10 Worksheet Patient Problems: Problems Problem Status Onset Abdominal pain in male Acute Chronic obstructive pulmonary disease with acute exacerbation Acute
[2017-10-19] MEDS: FLUCONAZOLE 100 MG TAB PO SCH (10:31)
[2017-10-19] MEDS: predniSONE 20 MG TAB PO SCH (10:31)
[2017-10-19] MEDS: LISINOPRIL 10 MG TAB PO SCH (10:31)
[2017-10-19] MEDS: PANTOPRAZOLE SODIUM 40 MG TAB PO SCH ×2 (10:31→18:37)
[2017-10-19] MEDS: FLUTICASONE/SALMETER 250/50MCG DISKUS IH SCH ×2 (10:33→22:00)
[2017-10-19] MEDS: VANCOMYCIN 750 MG in NS 150 ML IV SCH (12:11)
--- NOTE | 2017-10-19 16:45 | ASMTCMCOM ---
CM Note CM Note Notes: [facility] has accepted pt. He may be ready for DC tomorrow and [facility] will not have beds for at least a few days. CM to follow. Date Signed: 10/19/2017 04:44 PM Electronically Signed By:Shamika Ovalle LCSW
--- NOTE | 2017-10-19 16:48 | PCMIDPN ---
Assessment/Plan: Assessment: Peritonitis secondary to Streptococcus and gemella spp. secondary to perforated gastric ulcer. Patient is covered with Unasyn, vancomycin and fluconazole for empiric fungal coverage. Gradually improving. Gemella sensitivities are still pending from [place] labs however considering that beta-lactam resistance is a low likelihood in this circumstance we will discontinue vancomycin and proceed with Unasyn and fluconazole for discharge medications. If the labs come in with unexpected beta-lactam resistance then we can adjust at that point. Plan: 1. Continue coverage with Unasyn and fluconazole. 2. Discontinue vancomycin. 3. Follow up on laboratory data. 4. Prepare for discharge to alf facility tomorrow. Subjective: Patient is sitting up in his chair in his hospital room. He denies any new complaints. No fevers or chills. Objective: Vancomycin # 3 Unasyn # 5 Fluconazole # 2 Vital Signs Temp Pulse Resp BP Pulse Ox 36.3 C 87 20 124/67 H 93 10/19/17 16:36 10/19/17 16:36 10/19/17 16:36 10/19/17 16:36 10/19/17 16:36 Microbiology 10/08/17 20:15 Gram Stain - Final Peritoneal Fluid - Aspirate Laboratory Results 10/18/17 04:15 10/17/17 05:50 10/18/17 10/19/17 10/20/17 05:59 05:59 05:59 Intake Total 2173 2581 Output Total 2250 1850 400 Balance -77 731 -400 - Physical Exam General Appearance: WD/WN, alert, no apparent distress, non-toxic Respiratory: lungs clear, normal breath sounds, No respiratory distress Cardiac/Chest: regular rate, rhythm, No tachycardia Abdomen: soft, No non-tender Skin: normal color, warm/dry, No rash Neuro/Psych: alert, normal mood/affect, oriented x 3 ICD10 Worksheet Patient Problems: Problems Problem Status Onset Abdominal pain in male Acute Chronic obstructive pulmonary disease with acute exacerbation Acute
--- NOTE | 2017-10-19 18:56 | HOSPPROG ---
Hospitalist Progress Note Assessment/Plan: Assessment: 81-year-old male presenting with acute perforated gastric ulcer and acute hypoxic respiratory failure and suspected peritonitis Plan: # Gastric ulcer perforation with peritonitis s/p repair POD #11 - strep parasanguinous and gamella from operative cultures - 2/2 multiple duodenal ulcerations - advanced diet - d/w Dr. Osullivan, we have agreed to consolidate tx w/ Unasyn + fluconazole, duration TBD and ID f/u appt to ensure Gamella not b-lactam resistant - cont protonix BID # ABLA post-op. S/p 3 UPRBC - monitor Hgb daily # Acute on chronic hypoxic resp failure. Present on admission and not related to his surgery, required intubation - currently 3LPM - cont home steroids and inhaled meds # COPD w/ chronic immunosuppression. Uses chronic prednisone 20 mg daily - cont qid duonebs, advair, mucomyst - cont steroids at home dosage # hx TIA and prior CVA. 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 Mao # HyperNatremia. Resolved with free water repletion # Acute atelectasis. Right lower lobe on CXR, incentive spirometer # Postoperative ileus. Resolved Diet. As cammie Prophylaxis. High risk patient, Lovenox 40 Code. Full Disposition. Anticipated discharge 10/20 vs. 10/21, depending on timing of restarting Plavix, likely to require SNF. High-level medical complexity, high risk of worsening morbidity, secondary to the issues as outlined above. Subjective: patient w/o pain, reports he is eating well Objective: Vital Signs Temp Pulse Resp BP Pulse Ox 36.3 C 84 22 H 124/67 H 93 10/19/17 16:36 10/19/17 17:17 10/19/17 17:17 10/19/17 16:36 10/19/17 17:17 Microbiology 10/08/17 20:15 Gram Stain - Final Peritoneal Fluid - Aspirate Laboratory Results 10/18/17 04:15 10/17/17 05:50 10/18/17 10/19/17 10/20/17 05:59 05:59 05:59 Intake Total 2173 2581 Output Total 2250 1850 400 Balance -77 731 -400 PT 17.7 SEC (12.0-15.0) H 10/08/17 20:28 INR 1.44 (0.83-1.16) H 10/08/17 20:28 - Physical Exam Constitutional: no apparent distress, not in pain, chronically ill appearing, No uncomfortable Cardiovascular: systolic murmur (II/vI at sternum), No irregularly irregular, No tachycardia, No edema Respiratory: reduced air movement (on exp bilat), No expiratory wheeze, No inspiratory crackles, No bronchial breath sounds, No respiratory distress Gastrointestinal: normoactive bowel sounds, distension (mildly), No tenderness, No guarding Skin: other (well healing surg sites, no erythema/induration/necrosis/tenderness ) Neurologic: AAOx3 Psychiatric: not anxious, not encephalopathic, flat affect, No agitated ICD10 Worksheet Patient Problems: Problems Problem Status Onset Abdominal pain in male Acute Chronic obstructive pulmonary disease with acute exacerbation Acute
[2017-10-19] MEDS: ATORVASTATIN CALCIUM 20 MG TAB PO SCH (19:51)
[2017-10-19] MEDS: FLUTICASONE NASAL 120 SPRAYS/16 GM MDI NS SCH (19:52)
[2017-10-20] MEDS: ACETAMINOPHEN 325 MG TAB PO PRN (02:52)
[2017-10-20] MEDS: IPRATROPIUM/ALBUTEROL 3 ML DEYVIAL IH SCH ×2 (05:23→11:07)
[2017-10-20 05:41] VITALS: TEMP 97.5
[2017-10-20] MEDS: AMPICILLIN/SULBACTAM 3 GM in STERILE WATER INJ 8 ML IV SCH ×2 (06:00→10:02)
[2017-10-20] MEDS: FLUTICASONE/SALMETER 250/50MCG DISKUS IH SCH (08:38)
[2017-10-20 09:24] VITALS: BP 158/80; O2SAT 94
[2017-10-20] MEDS: LISINOPRIL 10 MG TAB PO SCH (10:02)
[2017-10-20] MEDS: FLUCONAZOLE 100 MG TAB PO SCH (10:02)
[2017-10-20] MEDS: predniSONE 20 MG TAB PO SCH (10:02)
[2017-10-20] MEDS: PANTOPRAZOLE SODIUM 40 MG TAB PO SCH (10:03)
--- NOTE | 2017-10-20 10:06 | PDIAF ---
- Diagnosis Diagnosis: peritonitis following ruptured gastric ulcer Code Status: Full Code - Medication Management Discharge Medications: Medications to Continue on Transfer Fluticasone Nasal [Flonase Nasal [place] (RX)] 1 sprays NASAL HS 10/08/17 [Last Taken 10/07/17] Fluticasone/Salmeter 250/50Mcg [Advair 250/50 (*)] 1 puffs IH HS 10/08/17 [Last Taken 10/07/17] Lisinopril [Zestril 10 mg (*)] 10 mg PO DAILY 10/08/17 [Last Taken 10/07/17] Simvastatin [Zocor] 40 mg PO HS 10/08/17 [Last Taken 10/07/17] predniSONE 20 mg PO DAILY 10/08/17 [Last Taken 10/07/17] Nursing Home Antibiotics: unasyn 3g IV q 6 hours, fluconazole 100 mg IV q day Reception Interviewer Antibiotic Stop Date: 10/22/17 Discharge Medications: Refer to the Discharge Home Medication list for PRN reason. PICC Care - Routine: Yes - Orders Services needed: Registered Nurse Isolation Type: None Diet Texture: Regular Texture Diet, Thin Liquids - Follow Up Care Current Providers and Referrals: Venkata Guadalupe MD [Primary Care Provider] - As per Instructions
--- NOTE | 2017-10-20 10:43 | SOAPPROG ---
SOAP Progress Note Assessment/Plan: Assessment/Plan: s/p repair of gastric perforation, large gastric and duodenal ulcers Discussed timing of Plavix. Difficult situation because higher risk but very recent rebleed which Plavix likely was a contributing factor. Will stop for one week and re-establish with a new neurologist D/C to SNF today. Abx though 10/22 Large gastric and duodenal ulcer - BID PPI F/U Dr. Mao in 2 weeks S: Eating well. Feels well. He has no concerns. O: General: Patient is sititng up eating eggs and sausage. 10/19/17 10:43 10/20/17 10:40 Objective: Vital Signs Temp Pulse Resp BP Pulse Ox 36.4 C 75 19 158/80 H 94 10/20/17 04:00 10/20/17 09:23 10/20/17 09:23 10/20/17 10:02 10/20/17 09:23 Laboratory Results 10/20/17 05:45 10/20/17 05:45 10/19/17 10/20/17 10/21/17 05:59 05:59 05:59 Intake Total 2581 657 Output Total 1850 775 200 Balance 731 -118 -200 PT 17.7 SEC (12.0-15.0) H 10/08/17 20:28 INR 1.44 (0.83-1.16) H 10/08/17 20:28 ICD10 Worksheet Patient Problems: Problems Problem Status Onset Abdominal pain in male Acute Chronic obstructive pulmonary disease with acute exacerbation Acute
[2017-10-20 11:16] VITALS: PULSE 78; RESP 16
--- NOTE | 2017-10-20 11:34 | PDIAF ---
- Diagnosis Diagnosis: peritonitis following ruptured gastric ulcer, hx of CVA (holding plavix) Code Status: Full Code - Medication Management Discharge Medications: Medications to Continue on Transfer Fluticasone Nasal [Flonase Nasal Line [place]] 1 sprays NASAL HS 10/08/17 [Last Taken 10/07/17] Fluticasone/Salmeter 250/50Mcg [Advair 250/50 (*)] 1 puffs IH HS 10/08/17 [Last Taken 10/07/17] Lisinopril [Zestril 10 mg (*)] 10 mg PO DAILY 10/08/17 [Last Taken 10/07/17] Simvastatin [Zocor] 40 mg PO HS 10/08/17 [Last Taken 10/07/17] predniSONE 20 mg PO DAILY 10/08/17 [Last Taken 10/07/17] Acetaminophen [Tylenol 325mg (*)] 650 mg PO Q4HRS PRN tab 10/20/17 [Last Taken Unknown] Ampicillin/Sulbactam [Unasyn] 3 gm IV Q6H #10 vial 10/20/17 [Last Taken Unknown] Fluconazole [Diflucan (*)] 200 mg PO DAILY #2 tab 10/20/17 [Last Taken Unknown] Ipratropium/Albuterol [Duoneb (*)] 3 ml IH QID PRN deyvial 10/20/17 [Last Taken Unknown] Pantoprazole Sodium [Protonix 40mg (*)] 40 mg PO BIDMEAL tab 10/20/17 [Last Taken Unknown] [facility] Antibiotics: unasyn 3g IV q 6 hours, fluconazole 100 mg IV q day Cause Analyst Antibiotic Stop Date: 10/22/17 Discharge Medications: Refer to the Discharge Home Medication list for PRN reason. PICC Care - Routine: Yes - Orders Services needed: Registered Nurse, Certified Diesel Technician, Master Plant Anatomy Teacher , Physical Therapy, Occupational Therapy, Speech Language Pathologist (swallow and cog therapy) Isolation Type: None Oxygen: 3 LPM continuously Diet Recommendation: cardiac -low fat low salt Diet Texture: Regular Texture Diet, Thin Liquids Weigh Patient: daily Bales: Not applicable (condom cath if requested by patient) Activity/Weight Bearing Restrictions: no more than 15lbs lifting x 4 weeks - Labs/Radiology BMP Date: 10/28/17 HCT/HGB Date: 10/28/17 Call or Fax Lab and Imaging Results to: Dr. Mao and Dr. Dye - Follow Up Care Current Providers and Referrals: Reina Mao MD [Medical Doctor] - follow up in 2 weeks (call to make an appointment) Venkata Guadalupe MD [Primary Care Provider] - follow up in 2 weeks (please call to schedule) Prosper Cobos MD [Medical Doctor] - 3-5 days (please call to schedule f/u) Ramon Dye MD, FACG [Medical Doctor] - (please call to schedule in 2-4 weeks )
--- NOTE | 2017-10-20 12:45 | ASMTCMCOM ---
CM Note CM Note Notes: Pt ready for DC today. Completed MOST form with pt after a conversation with Dr Pitts about the options. Dr Pitts signed it. Pt wants his to be his MDPOA. [facility] will complete paperwork. Final orders faxed to [facility]. They arranged pickup for 1:30. Date Signed: 10/20/2017 12:44 PM Electronically Signed By:Shamika Ovalle LCSW
--- NOTE | 2017-10-20 15:25 | ASDISCHSUM ---
Discharge Information Plan Status:SNF Medically Cleared to Leave: Discharge Date:10/20/2017 03:17 PM D/C Disposition:Halfway Facility ADT D/C Disposition:Halfway Facility Projected Discharge Date:10/20/2017 11:00 AM Transportation at D/C: Discharge Delay Reason: Follow-Up Date:10/20/2017 11:00 AM Discharge Slot: Final Diagnosis: Placement Information Referral Type:*Senior Living/SNF Referral ID:[id number] Provider Name:[facility] Address 1:[address] Address 2: City:[place] Selection Factors: State:[place] Patient Contact Information Contact Name:PACHECO Relationship: Address:[address] [place] [address] Work Phone: City:[place] Alternate Phone: State/Zip Code:[place] [address] Email: Financial Information Financial Class: Primary Plan Desc:MEDICARE INPATIENT Primary Plan Number:[id number] Secondary Plan Desc:[employer]/MDR SUPPLEMENT Secondary Plan Number:[id number] Assessment Information [facility] CM Progress Note CM Note CM Note Notes: Patient admitted with abdominal pain and found to have a perfortated gastric ulcer + abscess. He went to the OR yesterday for a repair. He is recovering well in the ICU and was extubated today. A GI consult has been ordered, as well as PT/OT/TIP PRINTER evals. Patient lives with ; discharge needs are TBD. Date Signed: 10/09/2017 10:38 AM Electronically Signed By:Tete Alejandro RN [facility] CM Progress Note CM Note CM Note Notes: Discussed SNF options with pt. He is not happy at thought of discharging to a SNF. Explained that home care agencies unlikely to follow him as he lives in the [facility]. Encouraged him to discuss recommendation with therapists so they can explain why a SNF d/c is best option. He would like to think about it. Also spoke with his RN re SNF recommendation and all involved with his care will encourage pt on best d/c plan option. CM will continue to follow. Date Signed: 10/12/2017 04:26 PM Electronically Signed By:EMILEE Gustafson [facility] CM Progress Note CM Note CM Note Notes: GIB, COPD, peritonitis, returned to ICU after bleed last night. Patient lives in the [facility] with his difficult to serve through . SNF vs In-pt Rehab. Need an Order for in-pt Rehab. Date Signed: 10/15/2017 04:14 PM Electronically Signed By:Neda Shi LCSW [facility] CM Progress Note CM Note CM Note Notes: 10/18/2017 Case Management Note Met w/pt to discuss PT recommendation for SNF rehab. Pt in agreement. Pt lives in [facility] and wishes to stay in [place]. After discussing options pt requested referrals to [facility] and [facility]. Faxed referrals. Case Management d/c poc: to SNF pending auth and acceptance. Case Management to follow. Date Signed: 10/18/2017 05:02 PM Electronically Signed By:Floresita Vela RN [facility] Progress Note CM Note CM Note Notes: [facility] has accepted pt. He may be ready for DC tomorrow and [facility] will not have beds for at least a few days. CM to follow. Date Signed: 10/19/2017 04:44 PM Electronically Signed By:Shamika Ovalle LCSW [facility] CM Progress Note CM Note CM Note Notes: Pt ready for DC today. Completed MOST form with pt after a conversation with Dr Pitts about the options. Dr Pitts signed it. Pt wants his to be his MDPOA. [facility] will complete paperwork. Final orders faxed to [facility]. They arranged pickup for 1:30. Date Signed: 10/20/2017 12:44 PM Electronically Signed By:Shamika Ovalle LCSW Intervention Information
--- NOTE | 2017-10-20 20:18 | PDDCSUM ---
Discharge Summary Discharge Summary: DISCHARGE SUMMARY FOLLOW-UP ITEMS: Outpatient GI evaluation including upper endoscopy Reinitiate Plavix in 7 days from discharge if no evidence of bleeding DATE OF ADMISSION: 10/08/2017 DATE OF DISCHARGE: 10/20/2017 DISCHARGE DIAGNOSES: 1. Acute gastric ulcer perforation 2. Acute peritonitis 3. Acute blood loss anemia 4. Acute on chronic hypoxic respiratory failure 5. COPD with chronic immunosuppression 6. History of TIA and prior CVA 7. Acute hyponatremia 8. Acute atelectasis 9. Acute postoperative ileus CONSULTATIONS: General surgery by Dr. Reina Mao Gastroenterology Infectious disease Pulmonary Critical Care PROCEDURES / IMAGIN10/08/2017 laparoscopic repair of gastric ulcer by Dr. Reina Mao 10/15/2017 upper endoscopy demonstrating 2 nonbleeding duodenal ulcers CHIEF COMPLAINT: Acute abdominal pain, lethargy SUBJECTIVE: Patient is feeling well at time discharge, he has no pain, he is eating well PHYSICAL EXAM ON DISCHARGE: Systolic blood pressure is 120-130, heart rate 80, afebrile overnight, satting well on 3 L nasal cannula, chronically ill-appearing male, alert awake oriented x3, lungs are clear to auscultation bilaterally on inspiration and expiration, heart rhythm is regular, not tachycardic, 1+ bilateral lower extremity edema, abdomen is mildly distended, nontender, surgical sites well healing without any surrounding erythema or ecchymoses LABS ON DISCHARGE: Hemoglobin 8.7, potassium 3.8, creatinine 0.8, BUN 22 HOSPITAL COURSE BY PROBLEM: 1. Gastric ulcer perforation with acute peritonitis. The patient experienced acute gastric ulcer perforation and experienced subsequent peritonitis from strep parasnguinous and Gamella, based on operative cultures. The patient initially received IV Unasyn, Infectious Disease was consulted. Likely function and vancomycin were added, until the patient reached clinical stability. Once the patient had stabilize, the decision was made to consolidate his treatment IV Unasyn and fluconazole, to be continued through October 22. If the patient does have evidence of beta-lactam resistance, the Infectious Disease practice will follow up with patient and adjust therapy. The patient received surgical repair of the perforation on the day of presentation by Dr. Reina Mao and the patient experienced a protracted recovery in the intensive care unit secondary to his underlying respiratory issues. At the time of discharge, his abdominal incision sites are well healed , and he will follow up if needed with Dr. Mao. His areas of perforation were reassessed after it was suspected that the patient had ongoing bleeding on 10/15/2017. Upper endoscopy was performed which demonstrated 2 nonbleeding duodenal ulcers and twice daily proton pump inhibitor therapy for at least [address] Mao and I also agreed the patient should remain off of anti-platelet medications for at least 1 week from the stabilization of his bleeding, and his Plavix will be re-initiated in the outpatient setting. Of note, H pylori testing was negative. 2. Acute blood loss anemia. This experienced postoperatively, status post 3 U packed red blood cells, hemoglobin stable at time discharge. 3. Acute on chronic hypoxic respiratory failure. This was present on admission and not related to his surgery, it was secondary to acute respiratory distress in the setting of intra-abdominal free air and gastric ulcer perforation, he did require intubation and admission to the intensive care unit. After extubation, his oxygen requirements have been weaned to 3 L nasal cannula, which is his baseline. After receiving stress dose steroids while he was intubated, his prednisone has been weaned down to his home dosage, and we have recommended that he establish outpatient care with a new relay repairer, given that his previous 1 has retired. 4. COPD with chronic immunosuppression. The patient will be continued on prednisone 20 mg daily, as needed breezyo Manuela omalley. 5. History of TIA and prior cerebellar CVA. Patient has an MRI from 2012 demonstrating an old cerebellar infarct at that time, I believe he has had subsequent TIA, he was on Plavix prior to this presentation. The Plavix was held given his gastric ulcer perforation, and should be held from at least the date of the upper endoscopy demonstrating duodenal ulcerations. I believe that 1 week. Should be sufficient but he should have reassessment by an outpatient neurologist, and given the patient has no outpatient neurologist, recommend he follow up with Dr. Prosper Cobos this week to reassess. The patient will also be continued on his statin. 6. Acute hyponatremia. This resolved with free water supplementation. 7. Acute atelectasis. This was present as right lower lobe on chest x-ray, he received incentive spirometer. 8. Acute postoperative ileus. The patient's ileus resolved and he was moving his bowels time discharge. DISCHARGE MEDICATIONS: Please see official discharge medication reconciliation sheet in chart , continue home medications with the exception discontinuation of Plavix for 1 week, to be followed up and re-initiated by the Neurology Clinic, Unasyn and fluconazole to be continued through October 22. DISCHARGE INSTRUCTIONS: Please establish care with the Neurology Clinic this week, gastroenterology thereafter for possible repeat upper endoscopy, Dr. Reina Mao as needed, Dr. Venkata Guadalupe from [facility] in approximately 2 weeks. TIME SPENT: Greater than 30 minutes were spent on direct patient care, as well as discharge planning and preparation.
== END 2017-10-20 15:17 | DRG 326 ==
LOC: EDUNIT# → F2N 17:15 → F1N 10-12 05:35 → F2N 10-14 21:51 → F1N 10-17 14:39
PROVIDERS: ADMIT Internal Medicine; ATTEND Internal Medicine
PROC: 5A09357 Assistance with Respiratory Ventilation, Less than 24 Consecutive Hours, Continuous Positive Airway Pressure (ICD-10-PCS; 2017-10-08)
PROC: 0DQ64ZZ Repair Stomach, Percutaneous Endoscopic Approach (ICD-10-PCS; principal; 2017-10-08 17:45)
PROC: 5A1945Z Respiratory Ventilation, 24-96 Consecutive Hours (ICD-10-PCS; principal; 2017-10-08 17:45)
PROC: 3E1M38X Irrigation of Peritoneal Cavity using Irrigating Substance, Percutaneous Approach, Diagnostic (ICD-10-PCS; principal; 2017-10-08 17:45)
PROC: 30233N1 Transfusion of Nonautologous Red Blood Cells into Peripheral Vein, Percutaneous Approach (ICD-10-PCS; 2017-10-14)
PROC: 0DJ08ZZ Inspection of Upper Intestinal Tract, Via Natural or Artificial Opening Endoscopic (ICD-10-PCS; 2017-10-15)
DX: K25.1 Acute gastric ulcer with perforation (principal); K65.0 Generalized (acute) peritonitis; B95.4 Other streptococcus as the cause of diseases classified elsewhere; B96.89 Other specified bacterial agents as the cause of diseases classified elsewhere; J96.21 Acute and chronic respiratory failure with hypoxia; K26.0 Acute duodenal ulcer with hemorrhage; T39.395A Adverse effect of other nonsteroidal anti-inflammatory drugs [NSAID], initial encounter; D62 Acute posthemorrhagic anemia; E87.0 Hyperosmolality and hypernatremia; J44.1 Chronic obstructive pulmonary disease with (acute) exacerbation; Z99.81 Dependence on supplemental oxygen; Z79.52 Long term (current) use of systemic steroids; J98.6 Disorders of diaphragm; I10 Essential (primary) hypertension; E78.5 Hyperlipidemia, unspecified; Z86.73 Personal history of transient ischemic attack (TIA), and cerebral infarction without residual deficits; Z79.02 Long term (current) use of antithrombotics/antiplatelets; Z85.46 Personal history of malignant neoplasm of prostate
CPT/HCPCS: 82947-QW; 87338-90; 92526-GN; 92610-GN; 97110-GP; 97116-GP; 97162-GP; 97164-GP; 97166-GO; 97530-GO; 97530-GP; 97535-GO; G8978-GP-CJ; G8978-GP-CL; G8979-GP-CI; G8979-GP-CJ; G8987-GO-CL; G8988-GO-CJ; G8996-GN-CI; G8996-GN-CK; G8997-GN-CI; G8998-GN-CI; J0171; J0295; J1100; J1170; J1650; J1940; J2001; J2248; J2370; J2405; J2704; J2765; J2920; J2930; J3010; J3370; J3430; J7512; J7613; P9016; P9021; P9041; Q9967

== ENCOUNTER 2019-02-27 17:46 | Inpatient (IN) | payer OTHER, MEDICARE | END 2019-03-07 14:15 | disposition hospice, home (50) | LOC: F3E 03-03 22:15 → F2N 19:59 ==

== ENCOUNTER 2019-03-08 11:33 | Emergency (ER) | payer OTHER, MEDICARE | END 2019-03-08 15:50 | disposition short-term general hospital (02) ==